=== PATIENT | male | born 2000 | race Caucasian/White ===

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

== ENCOUNTER 2021-07-26 16:27 | Inpatient (IN) | payer MEDICAID, OTHER ==
[2021-07-26 21:09] LABS: Appearance,Urine Clear (Clear); Bilirubin,Urine Negative (Negative); Blood,Urine Negative (Negative); Color,Urine Light Yellow; Glucose,Urine (UA) Negative (Negative); Ketones,Urine Negative (Negative); Leukocyte Esterase,Urine Negative (Negative); Nitrite,Urine Negative (Negative); Protein,Urine Negative (Negative); Specific Gravity,Urine 1.008 (1.001-1.035); Urobilinogen,Urine <2.0 mg/dL (<2.0)
[2021-07-26 21:19] LABS: Amphetamine Screen,Urine Not Detected (NotDetected); Barbiturate Screen,Urine Not Detected (NotDetected); Benzodiazepines Screen,Urine Not Detected (NotDetected); Cocaine Screen,Urine Not Detected (NotDetected); Methadone Screen, Urine Not Detected (NotDetected); Opiate Screen,Urine Not Detected (NotDetected); Oxycodone Screen, Urine Not Detected (NotDetected); Phencyclidine Screen,Urine Not Detected (NotDetected); Tricyclic Antidepressant,Urine Not Detected (NotDetected); Urn Cannabinoid Scrn Detected (NotDetected)
[2021-07-26 21:20] LABS: Basophils % (A) 0 %; Eosinophils % (A) 0 %; HCT 45.7 % (39.0-53.0); Lymphocytes % (A) 19 %; MCH 29.9 pg (25.0-35.0); MCHC 32.9 g/dL (31.0-37.0); MCV 90.7 fL (80.0-100.0); Mean Platelet Volume 7.5; Monocytes # (A) 0.5 k/uL (0-1.0); Monocytes % (A) 5 %; Neutrophils # (A) 7.6 k/uL (1.3-7.7); Neutrophils % (A) 72 %; Platelet Count 302 k/uL (150-450); RBC 5.04 m/uL (4.30-5.90); RDW 12.8 % (11.5-15.5); WBC 10.6 k/uL (4.0-11.0)
[2021-07-26 21:35] LABS: ALT 22 U/L (4-49); AST 43 U/L (17-59); African American GFR (CKD) >90 (>60 ml/min/1.73 sqM); Albumin 5.1 g/dL (3.5-5.0); Alkaline Phosphatase 93 U/L (38-126); Anion Gap 11 mmol/L; Blood Urea Nitrogen 13 mg/dL (9-20); Calcium 9.9 mg/dL (8.4-10.2); Carbon Dioxide 28 mmol/L (22-30); Chloride 102 mmol/L (98-107); Glucose 117 mg/dL (74-99); Non-African American GFR(CKD) >90 (>60 ml/min/1.73 sqM); Potassium 3.8 mmol/L (3.5-5.1); Sodium 141 mmol/L (137-145); Total Bilirubin 0.6 mg/dL (0.2-1.3); Total Protein 8.2 g/dL (6.3-8.2)
--- NOTE | 2021-07-26 23:42 | ED ---
Psych HPI - History of Present Illness MD Complaint: altered mental status -: unknown Associated Psychiatric Symptoms: racing thoughts, auditory hallucinations, delusions Quality: constant, getting worse Improves With: none Worsens With: none Context: significant life stressor Associated Symptoms: denies other symptoms Treatments Prior to Arrival: placed on mental health hold <Tyrell Raygoza - Last Filed: 07/27/21 02:08> - General Source: police Mode of arrival: ambulatory <Fatuma Browne - Last Filed: 07/30/21 12:14> - General Chief Complaint: Psychiatric Symptoms Stated Complaint: Petition Time Seen by Provider: 07/26/21 20:41 - History of Present Illness Initial Comments: 20-year-old male is brought into the emergency department on a court ordered petition. Family is at bedside and helps provide the history. Patient has been hallucinating, paranoid for the past several weeks. Police have been called to the house several times however he refuses to be transferred. Mother did petition the patient and police went to the house today on a court order pickling drum operator to have him evaluated. Mother states that the patient had one episode previously of hallucinations that was caused to low vitamin D level. Patient has been reportedly taking his vitamin D without any missed doses. He has no previous psychiatric diagnosis. Does not follow with a social media marketing specialist. He does not take any prescribed medications. Does admit to smoking marijuana. No other alleviating, precipitating or modifying factors (Fatuma Browne) - Related Data Home Medications Medication Instructions Recorded Confirmed Multivitamins, Thera [Multivitamin 1 tab PO DAILY 08/20/20 07/27/21 (formulary)] Cholecalciferol [Vitamin D3 (25 25 mcg PO DAILY 07/26/21 07/27/21 Mcg = 1000 Iu)] Vitamin B Complex 1 cap PO DAILY 07/26/21 07/27/21 Previous Rx's Medication Instructions Recorded Paliperidone [Invega] 3 mg PO HS 30 Days 07/29/21 Allergies Allergy/AdvReac Type Severity Reaction Status Date / Time amoxicillin Allergy Rash/Hives Verified 07/27/21 03:19 Review of Systems ROS Other: All systems not noted in ROS Statement are negative. <Tyrell Raygoza - Last Filed: 07/27/21 02:08> ROS Other: All systems not noted in ROS Statement are negative. <Fatuma Browne - Last Filed: 07/30/21 12:14> ROS Statement: Those systems with pertinent positive or pertinent negative responses have been documented in the HPI. Past Medical History Past Medical History: Neurologic Disorder Additional Past Medical History / Comment(s): Tetrology of Fallot. Asbergers. History of Any Multi-Drug Resistant Organisms: None Reported Additional Past Surgical History / Comment(s): Heart surgery X1. [place] teeth extracted. Past Anesthesia/Blood Transfusion Reactions: No Reported Reaction, Motion Sickness Past Psychological History: Anxiety Smoking Status: Vaper Past Alcohol Use History: None Reported Past Drug Use History: Marijuana - Past Family History Mother Family Medical History: No Reported History <Fatuma Browne - Last Filed: 07/30/21 12:14> General Exam General appearance: alert, in no apparent distress, anxious Head exam: Present: atraumatic, normocephalic, normal inspection Eye exam: Present: normal appearance, PERRL, EOMI. Absent: scleral icterus, conjunctival injection, periorbital swelling ENT exam: Present: normal exam, mucous membranes moist Neck exam: Present: normal inspection. Absent: tenderness, meningismus, lymphadenopathy Respiratory exam: Present: normal lung sounds bilaterally. Absent: respiratory distress, wheezes, rales, rhonchi, stridor Cardiovascular Exam: Present: normal rhythm, tachycardia, normal heart sounds. Absent: systolic murmur, diastolic murmur, rubs, gallop, clicks GI/Abdominal exam: Present: soft, normal bowel sounds. Absent: distended, tenderness, guarding, rebound, rigid Extremities exam: Present: normal inspection, full ROM, normal capillary refill. Absent: tenderness, pedal edema, joint swelling, calf tenderness Back exam: Present: normal inspection Neurological exam: Present: alert, oriented X3, CN II-XII intact Psychiatric exam: Present: normal affect, normal mood Skin exam: Present: warm, dry, intact, normal color. Absent: rash <Tyrell Raygoza - Last Filed: 07/27/21 02:08> Limitations: no limitations General appearance: alert, in no apparent distress Head exam: Present: atraumatic, normocephalic, normal inspection Eye exam: Present: normal appearance, PERRL, EOMI. Absent: scleral icterus, conjunctival injection, periorbital swelling ENT exam: Present: normal exam, mucous membranes moist Neck exam: Present: normal inspection. Absent: tenderness, meningismus, lymphadenopathy Respiratory exam: Present: normal lung sounds bilaterally. Absent: respiratory distress, wheezes, rales, rhonchi, stridor Cardiovascular Exam: Present: regular rate, normal rhythm, normal heart sounds. Absent: systolic murmur, diastolic murmur, rubs, gallop, clicks GI/Abdominal exam: Present: soft, normal bowel sounds. Absent: distended, tenderness, guarding, rebound, rigid Extremities exam: Present: normal inspection, full ROM, normal capillary refill. Absent: tenderness, pedal edema, joint swelling, calf tenderness Back exam: Present: normal inspection Neurological exam: Present: alert, oriented X3, CN II-XII intact Psychiatric exam: Present: normal affect, normal mood Skin exam: Present: warm, dry, intact, normal color. Absent: rash <Fatuma Browne - Last Filed: 07/30/21 12:14> Course <Tyrell Raygoza - Last Filed: 07/27/21 02:08> Vital Signs 07/26/21 07/27/21 17:04 03:52 Temperature 98.1 F 96.8 F L Pulse Rate 125 H Pulse Rate [ 85 Left Sitting] Respiratory 16 15 Rate Blood Pressure 140/91 Blood Pressure 130/82 [Left Arm Sitting] O2 Sat by Pulse 98 99 Oximetry - Reevaluation(s) Reevaluation #1: 07/27/21 02:08 Medical record is reviewed (Tyrell Raygoza) Reevaluation #2: 07/27/21 02:08 medically clear for psychiatric evaluation (Tyrell Raygoza) Medical Decision Making - Lab Data Result diagrams: 07/26/21 21:13 07/26/21 21:13 <Tyrell Raygoza - Last Filed: 07/27/21 02:08> - Lab Data Result diagrams: 07/26/21 21:13 07/26/21 21:13 <Fatuma Browne - Last Filed: 07/30/21 12:14> - Medical Decision Making 20 male be admitted for psychiatric evaluation and treatment (Tyrell Raygoza) Patient will be signed out to oncoming physician as he is awaiting EPS evaluation (Fatuma Browne) - Lab Data Lab Results 07/26/21 07/26/21 07/26/21 Range/Units 20:51 21:13 21:13 WBC 10.6 (4.0-11.0) k/uL RBC 5.04 (4.30-5.90) m/uL Hgb 15.0 (13.0-17.5) gm/dL Hct 45.7 (39.0-53.0) % MCV 90.7 (80.0-100.0) fL MCH 29.9 (25.0-35.0) pg MCHC 32.9 (31.0-37.0) g/dL RDW 12.8 (11.5-15.5) % Plt Count 302 (150-450) k/uL MPV 7.5 Neutrophils % 72 % Lymphocytes % 19 % Monocytes % 5 % Eosinophils % 0 % Basophils % 0 % Neutrophils # 7.6 (1.3-7.7) k/uL Lymphocytes # 2.0 (1.0-4.8) k/uL Monocytes # 0.5 (0-1.0) k/uL Eosinophils # 0.0 (0-0.7) k/uL Basophils # 0.0 (0-0.2) k/uL Sodium 141 (137-145) mmol/L Potassium 3.8 (3.5-5.1) mmol/L Chloride 102 (98-107) mmol/L Carbon Dioxide 28 (22-30) mmol/L Anion Gap 11 mmol/L BUN 13 (9-20) mg/dL Creatinine 0.88 (0.66-1.25) mg/dL Est GFR (CKD-EPI)AfAm >90 (>60 ml/min/1.73 sqM) Est GFR (CKD-EPI)NonAf >90 (>60 ml/min/1.73 sqM) Glucose 117 H (74-99) mg/dL Estimated Ave Glu mg/dL Hemoglobin A1c (0.0-6.0) % Calcium 9.9 (8.4-10.2) mg/dL Total Bilirubin 0.6 (0.2-1.3) mg/dL AST 43 (17-59) U/L ALT 22 (4-49) U/L Alkaline Phosphatase 93 (38-126) U/L Total Protein 8.2 (6.3-8.2) g/dL Albumin 5.1 H (3.5-5.0) g/dL Triglycerides (0.00-149.00) mg/dL Cholesterol (0.00-200.00) mg/dL LDL Cholesterol, Calc (0.0-131.0) mg/dL VLDL Cholesterol, Calc (5.00-40.00) mg/dL HDL Cholesterol (40.00-60.00) mg/dL Cholesterol/HDL Ratio Ratio TSH (0.465-4.680) mIU/L Urine Color Light Yellow Urine Appearance Clear (Clear) Urine pH 7.0 (5.0-8.0) Ur Specific [place] 1.008 (1.001-1.035) Urine Protein Negative (Negative) Urine Glucose (UA) Negative (Negative) Urine Ketones Negative (Negative) Urine Blood Negative (Negative) Urine Nitrite Negative (Negative) Urine Bilirubin Negative (Negative) Urine Urobilinogen <2.0 (<2.0) mg/dL Ur Leukocyte Esterase Negative (Negative) Urine Opiates Screen Not Detected (NotDetected) Ur Oxycodone Screen Not Detected (NotDetected) Urine Methadone Screen Not Detected (NotDetected) Ur Propoxyphene Screen Not Detected (NotDetected) Ur Barbiturates Screen Not Detected (NotDetected) U Tricyclic Antidepress Not Detected (NotDetected) Ur Phencyclidine Scrn Not Detected (NotDetected) Ur Amphetamines Screen Not Detected (NotDetected) U Methamphetamines Scrn Not Detected (NotDetected) U Benzodiazepines Scrn Not Detected (NotDetected) Urine Cocaine Screen Not Detected (NotDetected) U Marijuana (THC) Screen Detected H (NotDetected) Coronavirus (PCR) (Not Detectd) 07/26/21 07/26/21 07/27/21 Range/Units 21:13 21:13 02:20 WBC (4.0-11.0) k/uL RBC (4.30-5.90) m/uL Hgb (13.0-17.5) gm/dL Hct (39.0-53.0) % MCV (80.0-100.0) fL MCH (25.0-35.0) pg MCHC (31.0-37.0) g/dL RDW (11.5-15.5) % Plt Count (150-450) k/uL MPV Neutrophils % % Lymphocytes % % Monocytes % % Eosinophils % % Basophils % % Neutrophils # (1.3-7.7) k/uL Lymphocytes # (1.0-4.8) k/uL Monocytes # (0-1.0) k/uL Eosinophils # (0-0.7) k/uL Basophils # (0-0.2) k/uL Sodium (137-145) mmol/L Potassium (3.5-5.1) mmol/L Chloride (98-107) mmol/L Carbon Dioxide (22-30) mmol/L Anion Gap mmol/L BUN (9-20) mg/dL Creatinine (0.66-1.25) mg/dL Est GFR (CKD-EPI)AfAm (>60 ml/min/1.73 sqM) Est GFR (CKD-EPI)NonAf (>60 ml/min/1.73 sqM) Glucose (74-99) mg/dL Estimated Ave Glu mg/dL 111 Hemoglobin A1c 5.5 (0.0-6.0) % Calcium (8.4-10.2) mg/dL Total Bilirubin (0.2-1.3) mg/dL AST (17-59) U/L ALT (4-49) U/L Alkaline Phosphatase (38-126) U/L Total Protein (6.3-8.2) g/dL Albumin (3.5-5.0) g/dL Triglycerides 187.00 H (0.00-149.00) mg/dL Cholesterol 141.00 (0.00-200.00) mg/dL LDL Cholesterol, Calc 43.3 (0.0-131.0) mg/dL VLDL Cholesterol, Calc 37.40 (5.00-40.00) mg/dL HDL Cholesterol 60.30 H (40.00-60.00) mg/dL Cholesterol/HDL Ratio 2.34 Ratio TSH 1.280 (0.465-4.680) mIU/L Urine Color Urine Appearance (Clear) Urine pH (5.0-8.0) Ur Specific [place] (1.001-1.035) Urine Protein (Negative) Urine Glucose (UA) (Negative) Urine Ketones (Negative) Urine Blood (Negative) Urine Nitrite (Negative) Urine Bilirubin (Negative) Urine Urobilinogen (<2.0) mg/dL Ur Leukocyte Esterase (Negative) Urine Opiates Screen (NotDetected) Ur Oxycodone Screen (NotDetected) Urine Methadone Screen (NotDetected) Ur Propoxyphene Screen (NotDetected) Ur Barbiturates Screen (NotDetected) U Tricyclic Antidepress (NotDetected) Ur Phencyclidine Scrn (NotDetected) Ur Amphetamines Screen (NotDetected) U Methamphetamines Scrn (NotDetected) U Benzodiazepines Scrn (NotDetected) Urine Cocaine Screen (NotDetected) U Marijuana (THC) Screen (NotDetected) Coronavirus (PCR) Not Detected (Not Detectd) Disposition Is patient prescribed a controlled substance at d/c from ED?: No <Tyrell Raygoza B - Last Filed: 07/27/21 02:08> <Fautma Browne A - Last Filed: 07/30/21 12:14> Clinical Impression: Psychosis, Acute psychosis Disposition: TRANSFER TO PSYCH HOSP/UNIT Condition: Stable
[2021-07-27] MEDS ORDERED: LORazepam 1 MG TAB PO PRN (03:15)
[2021-07-27] MEDS ORDERED: LORazepam 2 MG/ML INJ IM PRN (03:17)
[2021-07-27] MEDS ORDERED: HALOPERIDOL LACTATE 5 MG/ML 1 ML VIAL IM PRN (03:30)
[2021-07-27] MEDS ORDERED: haloperidoL 5 MG TAB PO PRN (06:00)
[2021-07-27] MEDS ORDERED: ACETAMINOPHEN TAB 325 MG TAB PO PRN (08:00)
[2021-07-27] MEDS ORDERED: MAG HYDROX/AL HYDROX/SIMETH 30 ML CUP PO PRN (08:00)
[2021-07-27] MEDS: NICOTINE 14MG/24HR PATCH TRANSDERM SCH (08:24)
[2021-07-27] MEDS ORDERED: MAGNESIUM HYDROXIDE 2,400 MG/10 ML CUP PO PRN (09:00)
--- NOTE | 2021-07-27 11:41 | P.HP ---
Psychiatric H&P - . H&P Date: 07/27/21 History & Physical: Allergies Allergy/AdvReac Type Severity Reaction Status Date / Time amoxicillin Allergy Rash/Hives Verified 07/27/21 03:19 Vital Signs Temp 96.8 F L 07/27/21 03:52 Pulse 85 07/27/21 03:52 Resp 15 07/27/21 03:52 BP 130/82 07/27/21 03:52 Pulse Ox 99 07/27/21 03:52 Intake & Output 07/26/21 07/27/21 07/27/21 18:59 06:59 18:59 Weight 56.699 kg 48.166 kg Laboratory Last Values WBC 10.6 k/uL (4.0-11.0) 07/26/21 21:13 RBC 5.04 m/uL (4.30-5.90) 07/26/21 21:13 Hgb 15.0 gm/dL (13.0-17.5) 07/26/21 21:13 Hct 45.7 % (39.0-53.0) 07/26/21 21:13 MCV 90.7 fL (80.0-100.0) 07/26/21 21:13 MCH 29.9 pg (25.0-35.0) 07/26/21 21:13 MCHC 32.9 g/dL (31.0-37.0) 07/26/21 21:13 RDW 12.8 % (11.5-15.5) 07/26/21 21:13 Plt Count 302 k/uL (150-450) 07/26/21 21:13 MPV 7.5 07/26/21 21:13 Neutrophils % 72 % 07/26/21 21:13 Lymphocytes % 19 % 07/26/21 21:13 Monocytes % 5 % 07/26/21 21:13 Eosinophils % 0 % 07/26/21 21:13 Basophils % 0 % 07/26/21 21:13 Neutrophils # 7.6 k/uL (1.3-7.7) 07/26/21 21:13 Lymphocytes # 2.0 k/uL (1.0-4.8) 07/26/21 21:13 Monocytes # 0.5 k/uL (0-1.0) 07/26/21 21:13 Eosinophils # 0.0 k/uL (0-0.7) 07/26/21 21:13 Basophils # 0.0 k/uL (0-0.2) 07/26/21 21:13 Sodium 141 mmol/L (137-145) 07/26/21 21:13 Potassium 3.8 mmol/L (3.5-5.1) 07/26/21 21:13 Chloride 102 mmol/L (98-107) 07/26/21 21:13 Carbon Dioxide 28 mmol/L (22-30) 07/26/21 21:13 Anion Gap 11 mmol/L 07/26/21 21:13 BUN 13 mg/dL (9-20) 07/26/21 21:13 Creatinine 0.88 mg/dL (0.66-1.25) 07/26/21 21:13 Est GFR (CKD-EPI)AfAm >90 (>60 ml/min/1.73 sqM) 07/26/21 21:13 Est GFR (CKD-EPI)NonAf >90 (>60 ml/min/1.73 sqM) 07/26/21 21:13 Glucose 117 mg/dL (74-99) H 07/26/21 21:13 Calcium 9.9 mg/dL (8.4-10.2) 07/26/21 21:13 Total Bilirubin 0.6 mg/dL (0.2-1.3) 07/26/21 21:13 AST 43 U/L (17-59) 07/26/21 21:13 ALT 22 U/L (4-49) 07/26/21 21:13 Alkaline Phosphatase 93 U/L (38-126) 07/26/21 21:13 Total Protein 8.2 g/dL (6.3-8.2) 07/26/21 21:13 Albumin 5.1 g/dL (3.5-5.0) H 07/26/21 21:13 Urine Color Light Yellow 07/26/21 20:51 Urine Appearance Clear (Clear) 07/26/21 20:51 Urine pH 7.0 (5.0-8.0) 07/26/21 20:51 Ur Specific [place] 1.008 (1.001-1.035) 07/26/21 20:51 Urine Protein Negative (Negative) 07/26/21 20:51 Urine Glucose (UA) Negative (Negative) 07/26/21 20:51 Urine Ketones Negative (Negative) 07/26/21 20:51 Urine Blood Negative (Negative) 07/26/21 20:51 Urine Nitrite Negative (Negative) 07/26/21 20:51 Urine Bilirubin Negative (Negative) 07/26/21 20:51 Urine Urobilinogen <2.0 mg/dL (<2.0) 07/26/21 20:51 Ur Leukocyte Esterase Negative (Negative) 07/26/21 20:51 Urine Opiates Screen Not Detected (NotDetected) 07/26/21 20:51 Ur Oxycodone Screen Not Detected (NotDetected) 07/26/21 20:51 Urine Methadone Screen Not Detected (NotDetected) 07/26/21 20:51 Ur Propoxyphene Screen Not Detected (NotDetected) 07/26/21 20:51 Ur Barbiturates Screen Not Detected (NotDetected) 07/26/21 20:51 U Tricyclic Antidepress Not Detected (NotDetected) 07/26/21 20:51 Ur Phencyclidine Scrn Not Detected (NotDetected) 07/26/21 20:51 Ur Amphetamines Screen Not Detected (NotDetected) 07/26/21 20:51 U Methamphetamines Scrn Not Detected (NotDetected) 07/26/21 20:51 U Benzodiazepines Scrn Not Detected (NotDetected) 07/26/21 20:51 Urine Cocaine Screen Not Detected (NotDetected) 07/26/21 20:51 U Marijuana (THC) Screen Detected (NotDetected) H 07/26/21 20:51 Coronavirus (PCR) Not Detected (Not Detectd) 07/27/21 02:20 07/27/21 11:36 IDENTIFYING DATA: Patient is a 20-year-old male currently [place] 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 HPI: Patient presented to the hospital yesterday brought in by police and petition by patient's mother. According to petition patient has been paranoid lately and been saying bizarre and delusional things including KAMINI and g overnment tapping his phone and also that "Elvia owns the farm". Patient was admitted on a petition and certificate and agreeable to speak to bond underwriter today. According to staff, patient has been endorsing paranoia about different things on the unit today. Patient was somewhat suspicious of bond underwriter's office and asked about the camera systems. Patient was endorsing paranoia and spoke about saying things like "patient owns my farm" and also claims that "I could be the antichrist". He was rambling at times and tangential. He was attempting to cooperate as best as he could. He states that the police brought him in because his mother petitioned him. He also believed the government was tapping his phone and "reading my mind" and also states that the [facility] was listening to him. He states that he does not have any anxiety or any mood swings. He denies a history of raj or manic episodes. He claims that his sleep and appetite have been fair. He is denying any anxiety or any depression. Patient denies any suicidal or homicidal ideations intent or plan. At this time patient denies any auditory or visual hallucinations. Patient denies any flight of ideas racing thoughts and increased in goal directed behavior. Patient admits to using THC on a daily basis. He claims that he smokes about 2 g of marijuana a day. He also claims that he uses nicotine vape products. PAST PSYCHIATRIC HISTORY: Patient states that he has a history of being admitted to the mental health unit at [facility] one year ago however did not explain why. Patient denies being on any psychiatric medications. Patient denies any psychiatric outpatient follow-up. However he did state that he is to follow up with [facility]. Patient denies any history of suicide attempts in the past. Past Medical History: Neurologic Disorder Additional Past Medical History / Comment(s): Tetrology of Fallot. Asbergers. ALLERGIES: as per EMR CHEMICAL DEPENDENCY HISTORY: as per HPI FAMILY PSYCHIATRIC/SUBSTANCE USE HISTORY: Claims that his grandfather had bipolar disorder SOCIAL HISTORY: Patient was born and raised in [place] and also near [place] on a farm. He states that he completed high school. 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 He denies any legal history. He visits with his mother and father.. MENTAL STATUS EXAM: General Appearance: Patient appears to be thin, stated age is alert, directable however is endorsing paranoia and suspiciousness. Patient appears to have fair hygiene and grooming. Behavior: Patient is seated without any agitated behavior. Suspicious and paranoid. Speech: Patient's speech is fluent and nonpressured. Mood/Affect: Patient reports their mood is "okay", affect is congruent and constricted. Suicidality/Homicidality: Patient denies having any homicidal ideation intent or plan. Denies any suicidal ideations intent or plan Perceptions: Patient denies any visual hallucinations and denies any auditory hallucinations Though content/process: Patient is rambling at times, tangential, endorsing paranoia. Memory and concentration: AOX3, grossly intact for the purposes of this session. Can spell "WORLD" backwards Judgment and insight: poor STRENGTHS/WEAKNESSES: strength is that patient is resilient. Weakness is that patient has poor judgment and is impulsive INTELLECT: average IMPRESSIONS: Acute psychosis, rule out secondary to cannabis use Cannabis use disorder, severe Nicotine dependence PLAN: -Patient is admitted under voluntary status to MHU for stabilization of psychiatric symptoms and safety. Patient has signed adult voluntary form and medication consent and is placed in patient's chart. -Medications : Will start patient on paliperidone by mouth 3 mg daily at bedtime for psychosis. -Ativan and Haldol PRN for agitation/aggression -Patient was counselled on substance abuse and desired to cut back on use -Patient was informed of the risks, benefits and side effects of the medication and patient verbally consented to taking the medications. Patient signed med consent form and was placed in chart. -Internal Medicine consult to perform medical evaluation and physical. -NRT - nicotine patch -SW on board for discharge planning. Encourage patient to participate in groups to work on coping skills.
--- NOTE | 2021-07-27 14:59 | P.CONS ---
History of Present Illness - Reason for Consult Consult date: 07/27/21 Medical management Requesting physician: Enoch Hinojosa - Chief Complaint Abdominal statements - History of Present Illness This is a pleasant 20-year-old patient, follows with Dr. Mart. Patient brought into the hospital accompanied by the per nitin addition by the patient's mother. Patient has been becoming paranoid lately and saying delusional and bizarre things. Including development tapping the phone and KAMINI eating more. Also made a comment about Satan awning the farm.. He has been endorsing paranoid statements on the psychiatry unit. Patient occasionally gets heartburn. Does sometimes smoke marijuana. He also does vaping. Alcohol rarely. Sometimes trouble sleeping. Review of systems: GEN.: None EYES: None HEENT: None NECK: None RESPIRATORY: None CARDIOVASCULAR: None GASTROINTESTINAL: None GENITOURINARY: None MUSCULOSKELETAL: None LYMPHATICS: None HEMATOLOGICAL: None PSYCHIATRY: None NEUROLOGICAL: None Past medical history to include: Tetralogy of fallot, Asbergers Social history: Lives with his parents. 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 Does marijuana once or twice a day. Does vaping. Alcohol occasionally. Family history: Reviewed, noncontributory to presentation Physical examination: VITAL SIGNS: 96.8, 95, 15, 1:30/82, 99% room air GENERAL: BMI 16.6, sitting up in chair, awake slightly anxious. EYES: Pupils equal. Conjunctiva normal. HEENT: External appearance of nose and ears normal, oral cavity grossly normal. NECK: JVD not raised; masses not palpable. HEART: First and second heart sounds are normal; no edema. LUNGS: Respiratory rate normal; clear to auscultation. ABDOMEN: Soft, nontender, liver spleen not palpable, no masses palpable. PSYCH: Answering questions. More detailed examination per psychiatryl. MUSCULOSKELETAL:No Clubbing/cyanosis;muscles-grossly intact NEUROLOGICAL: Cranial nerves grossly intact; no facial asymmetry, power and sensation grossly intact. LYMPHATICS: No lymph nodes palpable in the axilla and neck INVESTIGATIONS, reviewed in the clinical context: White count 10.6 hemoglobin 15 platelets 302 sodium 141 potassium 3.8 creatinine 0.8 date UA: Negative Urine drug screen positive for COVID 19 PCR: Not detected Assessment and plan: -Chronic nicotine dependence, patient does vaping daily Nicotine patch -Marijuana use on a daily basis Counseled against the same -Occasional GERD Liquid Tums when necessary -Acute Psychosis not otherwise specified Medications per psychiatry Discussed with the patient. Nicotine patch. Tums when necessary. Follow-up with Dr. Mart upon discharge. Thank you Dr. Hinojosa Past Medical History Past Medical History: Neurologic Disorder Additional Past Medical History / Comment(s): Tetrology of Fallot. Asbergers. History of Any Multi-Drug Resistant Organisms: None Reported Additional Past Surgical History / Comment(s): Heart surgery X1. [place] teeth extracted. Past Anesthesia/Blood Transfusion Reactions: No Reported Reaction, Motion Sickness Past Psychological History: Anxiety Smoking Status: Vaper Past Alcohol Use History: None Reported Past Drug Use History: Marijuana Additional Drug Use History / Comment(s): Medical marijuana once or twice daily. - Past Family History Mother Family Medical History: No Reported History Medications and Allergies Home Medications Medication Instructions Recorded Confirmed Type Multivitamins, Thera [Multivitamin 1 tab PO DAILY 08/20/20 07/27/21 History (formulary)] Cholecalciferol [Vitamin D3 (25 25 mcg PO DAILY 07/26/21 07/27/21 History Mcg = 1000 Iu)] Vitamin B Complex 1 cap PO DAILY 07/26/21 07/27/21 History Allergies Allergy/AdvReac Type Severity Reaction Status Date / Time amoxicillin Allergy Rash/Hives Verified 07/27/21 03:19 Physical Exam Vitals: Vital Signs Temp Pulse Pulse Resp BP BP Pulse Ox 07/27/21 03:52 96.8 F L 85 15 130/82 99 07/26/21 17:04 98.1 F 125 H 16 140/91 98 Intake and Output 07/26/21 07/27/21 07/27/21 22:59 06:59 14:59 Other: Weight 56.699 kg 48.166 kg Results CBC & Chem 7: 07/26/21 21:13 07/26/21 21:13 Labs: Abnormal Lab Results - Last 24 Hours (Table) 07/26/21 07/26/21 Range/Units 20:51 21:13 Glucose 117 H (74-99) mg/dL Albumin 5.1 H (3.5-5.0) g/dL U Marijuana (THC) Screen Detected H (NotDetected)
[2021-07-27 15:34] VITALS: BMI 16.6
[2021-07-27] MEDS: PALIPERIDONE 3 MG TAB.ER.24 PO SCH (21:21)
[2021-07-28 06:28] VITALS: RESP 16
[2021-07-28] MEDS: NICOTINE 14MG/24HR PATCH TRANSDERM SCH (08:44)
--- NOTE | 2021-07-28 10:22 | P.PN ---
Progress Note - Text Progress Note Date: 07/28/21 Interval history: Patient was seen today for psychiatric follow up. He was seen participating in group today and appeared to have an improvement in his overall affect today. He states that his mood and anxiety and thoughts are becoming clearer and improved since coming in. He claims that he was thinking "like a fool" before he came into the hospital. He states that the medication made him feel tired last night however states that he did wake up fairly early due to another patient being loud. He states that his appetite is improving. He claims that he is feeling less paranoid today and was not suspicious of copy writer. He appeared to be fairly future oriented and spoke about discharge planning. He is denying any suicidal or homicidal ideations intent or plan and denying any auditory or visual hallucinations. General Appearance: Patient appears to be thin, stated age is alert, directable however, less suspicious today. Patient appears to have fair hygiene and grooming. Behavior: Patient is seated without any agitated behavior. less Suspicious Speech: Patient's speech is fluent and nonpressured. Mood/Affect: Patient reports their mood is "good", affect is congruent Suicidality/Homicidality: Patient denies having any homicidal ideation intent or plan. Denies any suicidal ideations intent or plan Perceptions: Patient denies any visual hallucinations and denies any auditory hallucinations Though content/process: Patient is rambling at times, tangential/circumstantial. More goal oriented and improving thought process. Less suspicious/paranoid. Memory and concentration: AOX3, grossly intact for the purposes of this session Judgment and insight: improving mildly IMPRESSIONS: Acute psychosis, rule out secondary to cannabis use Cannabis use disorder, severe Nicotine dependence PLAN: -Patient is admitted under voluntary status to MHU for stabilization of psychiatric symptoms and safety. Patient has signed adult voluntary form and medication consent and is placed in patient's chart. -Medications : continue with paliperidone by mouth 3 mg daily at bedtime for p sychosis. -Ativan and Haldol PRN for agitation/aggression -NRT - nicotine patch -SW on board for discharge planning. Encourage patient to participate in groups to work on coping skills. likely discharge tomorrow back home.
[2021-07-28 10:43] LABS: Chol/HDL Ratio 2.34 Ratio; LDL Cholesterol,Calculated 43.3 mg/dL (0.0-131.0)
[2021-07-28] MEDS: PALIPERIDONE 3 MG TAB.ER.24 PO SCH (20:23)
[2021-07-29 06:53] VITALS: BP 118/70; PULSE 106; TEMP 97.9
--- NOTE | 2021-07-29 10:12 | P.DS ---
Providers Date of admission: 07/27/21 03:00 Expected date of discharge: 07/29/21 Attending physician: Enoch Hinojosa MD Consults: 07/27/21 03:15 Consult Physician Routine Consulting Provider: Jaiden Alejandra Consult Reason/Comments: For H & P for Medical Follow Up Do you want consulting provider notified?: Yes Primary care physician: Dejon Mart - Discharge Diagnosis(es) (1) Acute psychosis Current Visit: Yes Status: Acute Priority: High (2) Cannabis use disorder, severe, dependence Current Visit: Yes Status: Acute Priority: High (3) Nicotine dependence Current Visit: Yes Status: Acute Priority: Low Hospital Course: Admission HPI: Admission note was completed by technical document writer "Patient is a 20-year-old male currently lives [place] 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 Patient presented to the hospital yesterday brought in by police and petition by patient's mother. According to petition patient has been paranoid lately and been saying bizarre and delusional things including [employer] and government tapping his phone and also that "Elvia owns the farm". Patient was admitted on a petition and certificate and agreeable to speak to technical document writer today. According to staff, patient has been endorsing paranoia about different things on the unit today. Patient was somewhat suspicious of technical document writer's office and asked about the camera systems. Patient was endorsing paranoia and spoke about saying things like "patient owns my farm" and also claims that "I could be the antichrist". He was rambling at times and tangential. He was attempting to cooperate as best as he could. He states that the police brought him in because his mother petitioned him. He also believed the Screenie was tapping his phone and "reading my mind" and also states that the FullStory was listening to him. He states that he does not have any anxiety or any mood swings. He denies a history of raj or manic episodes. He claims that his sleep and appetite have been fair. He is denying any anxiety or any depression. Patient denies any suicidal or homicidal ideations intent or plan. At this time patient denies any auditory or visual hallucinations. Patient denies any flight of ideas racing thoughts and increased in goal directed behavior. Patient admits to using THC on a daily basis. He claims that he smokes about 2 g of marijuana a day. He also claims that he uses nicotine vape products." Hospital course: Upon admission to the unit patient was initially admitted involuntarily on a petition and certificate however he was directable and agreeable to commence treatment and signed adult voluntary form . Patient got along well with other patients on the unit and followed unit protocol. Patient was compliant with the medications and denied any side effects throughout hospital course. Patient was started on paliperidone by mouth 3 mg daily at bedtime for psychosis/paranoia. Patient spoke of his stressors and engaged in therapy both group and individual. Patient was also seen by medical team for history and physical exam. Throughout the course of the hospitalization patient gradually improved with regards to psychosis/paranoia, mood, sleep and became more future oriented with improved insight and judgment. On the day of discharge patient denied any suicidal or homicidal ideations intent or plan denied any auditory or visual hallucinations. Patient endorsed wanting to live for his future and his family. The patient denied any access to guns or weapons. Patient denied any paranoia and did not endorse any delusions. Patient does have a significant history of substance abuse and was counseled on abstaining from all substances including alcohol and marijuana. Patient elected to do outpatient substance use treatment program through [facility]. Patient was also counseled on the medications and need for regular compliance and was encouraged to follow-up with their outpatient appointment for mental health and also for primary care. Prior to discharge a family meeting will be arranged by psychosocial rehabilitation counselor to answer any questions and ensure safety upon discharge. Mental status exam: General Appearance: Patient appears to be thin, stated age is alert, pleasant, and cooperative. Patient is in no acute distress and has improved hygiene and grooming Behavior: Patient is calmly seated without any agitated behavior. Speech: Patient's speech is fluent and nonpressured. Mood/Affect: Patient reports their mood is "better", affect is congruent and euthymic. Suicidality/Homicidality: Patient denies having any suicidal or homicidal ideation intent or plan. Perceptions: Patient denies any auditory or visual hallucinations. Though content/process: There is no evidence of any delusional thought content and thought process is linear and goal-directed. more future oriented Memory and concentration: AOX3, grossly intact for the purposes of this session. Can spell "WORLD" backwards correctly. Judgment and insight: improved with guarded prognosis Impression: Acute psychosis, likely secondary to cannabis use Cannabis use disorder, severe Nicotine dependence Plan: -Continue with discharge today as patient has improved and stabilized psychiatrically and is not currently an imminent threat to himself and/or others. Patient will remain at chronically elevated risk for harm to self and/or others due to his substance abuse. -Continue medications: Paliperidone by mouth 3 mg daily at bedtime for psychosis/paranoia. -Patient was counseled on the need for medication compliance and appropriate follow-up at mental health and also primary care for medical issues. Patient verbalized understanding and agreed. -Social work to arrange for and conduct family meeting to ensure safety upon discharge and answer any questions/concerns. Social work also to arrange for patients follow up appointments for psychiatric care along with follow up with primary care provider. -Patient counseled on abstaining from recreational drugs and marijuana and alcohol. Was informed/educated on the adverse effects on their physical and mental health. Patient verbally agreed and understood. Patient was offered substance abuse treatment however declined at this time. -Patient was instructed to return to the hospital or seek immediate medical care if their psychiatric or medical symptoms do worsen or reoccur. Allergies Allergy/AdvReac Type Severity Reaction Status Date / Time amoxicillin Allergy Rash/Hives Verified 07/27/21 03:19 Laboratory Results WBC 10.6 k/uL (4.0-11.0) 07/26/21 21:13 RBC 5.04 m/uL (4.30-5.90) 07/26/21 21:13 Hgb 15.0 gm/dL (13.0-17.5) 07/26/21 21:13 Hct 45.7 % (39.0-53.0) 07/26/21 21:13 MCV 90.7 fL (80.0-100.0) 07/26/21 21:13 MCH 29.9 pg (25.0-35.0) 07/26/21 21:13 MCHC 32.9 g/dL (31.0-37.0) 07/26/21 21:13 RDW 12.8 % (11.5-15.5) 07/26/21 21:13 Plt Count 302 k/uL (150-450) 07/26/21 21:13 MPV 7.5 07/26/21 21:13 Neutrophils % 72 % 07/26/21 21:13 Lymphocytes % 19 % 07/26/21 21:13 Monocytes % 5 % 07/26/21 21:13 Eosinophils % 0 % 07/26/21 21:13 Basophils % 0 % 07/26/21 21:13 Neutrophils # 7.6 k/uL (1.3-7.7) 07/26/21 21:13 Lymphocytes # 2.0 k/uL (1.0-4.8) 07/26/21 21:13 Monocytes # 0.5 k/uL (0-1.0) 07/26/21 21:13 Eosinophils # 0.0 k/uL (0-0.7) 07/26/21 21:13 Basophils # 0.0 k/uL (0-0.2) 07/26/21 21:13 Sodium 141 mmol/L (137-145) 07/26/21 21:13 Potassium 3.8 mmol/L (3.5-5.1) 07/26/21 21:13 Chloride 102 mmol/L (98-107) 07/26/21 21:13 Carbon Dioxide 28 mmol/L (22-30) 07/26/21 21:13 Anion Gap 11 mmol/L 07/26/21 21:13 BUN 13 mg/dL (9-20) 07/26/21 21:13 Creatinine 0.88 mg/dL (0.66-1.25) 07/26/21 21:13 Est GFR (CKD-EPI)AfAm >90 (>60 ml/min/1.73 sqM) 07/26/21 21:13 Est GFR (CKD-EPI)NonAf >90 (>60 ml/min/1.73 sqM) 07/26/21 21:13 Glucose 117 mg/dL (74-99) H 07/26/21 21:[address] Glu mg/dL 111 07/26/21 21:13 Hemoglobin A1c 5.5 % (0.0-6.0) 07/26/21 21:13 Calcium 9.9 mg/dL (8.4-10.2) 07/26/21 21:13 Total Bilirubin 0.6 mg/dL (0.2-1.3) 07/26/21 21:13 AST 43 U/L (17-59) 07/26/21 21:13 ALT 22 U/L (4-49) 07/26/21 21:13 Alkaline Phosphatase 93 U/L (38-126) 07/26/21 21:13 Total Protein 8.2 g/dL (6.3-8.2) 07/26/21 21:13 Albumin 5.1 g/dL (3.5-5.0) H 07/26/21 21:13 Triglycerides 187.00 mg/dL (0.00-149.00) H 07/26/21 21: Cholesterol 141.00 mg/dL (0.00-200.00) 07/26/21 21: LDL Cholesterol, Calc 43.3 mg/dL (0.0-131.0) 07/26/21: VLDL Cholesterol, Calc 37.40 mg/dL (5.00-40.00) 07/26/21: HDL Cholesterol 60.30 mg/dL (40.00-60.00) H 07/26/21: Cholesterol/HDL Ratio 2.34 Ratio 07/26/21: TSH 1.280 mIU/L (0.465-4.680) 07/26/21 21: Urine Color Light Yellow 07/26/21 20: Urine Appearance Clear (Clear) 07/26/21 20: Urine pH 7.0 (5.0-8.0) 07/26/21 20: Ur Specific [place] 1.008 (1.001-1.035) 07/26/21 20: Urine Protein Negative (Negative) 07/26/21 20: Urine Glucose (UA) Negative (Negative) 07/26/21 20: Urine Ketones Negative (Negative) 07/26/21 20: Urine Blood Negative (Negative) 07/26/21 20: Urine Nitrite Negative (Negative) 07/26/21: Urine Bilirubin Negative (Negative) 07/26/21 20: Urine Urobilinogen <2.0 mg/dL (<2.0) 07/26/21 20: Ur Leukocyte Esterase Negative (Negative) 07/26/21 20:51 Urine Opiates Screen Not Detected (NotDetected) 07/26/21 20: Ur Oxycodone Screen Not Detected (NotDetected) 07/26/21 20:51 Urine Methadone Screen Not Detected (NotDetected) 07/26/21 20:51 Ur Propoxyphene Screen Not Detected (NotDetected) 07/26/21 20:51 Ur Barbiturates Screen Not Detected (NotDetected) 07/26/21 20:51 U Tricyclic Antidepress Not Detected (NotDetected) 07/26/21 20:51 Ur Phencyclidine Scrn Not Detected (NotDetected) 07/26/21 20:51 Ur Amphetamines Screen Not Detected (NotDetected) 07/26/21 20:51 U Methamphetamines Scrn Not Detected (NotDetected) 07/26/21 20:51 U Benzodiazepines Scrn Not Detected (NotDetected) 07/26/21 20:51 Urine Cocaine Screen Not Detected (NotDetected) 07/26/21 20:51 U Marijuana (THC) Screen Detected (NotDetected) H 07/26/21 20:51 Coronavirus (PCR) Not Detected (Not Detectd) 07/27/21 02:20 Vital Signs Temp 97.9 F 07/29/21 06:52 Pulse 106 H 07/29/21 06:52 Resp 16 07/29/21 06:52 BP 118/70 07/29/21 06:52 Pulse Ox 99 07/29/21 06:52 Patient Condition at Discharge: Stable Plan - Discharge Summary New Discharge Prescriptions: New Paliperidone [Invega] 3 mg PO HS 30 Days Continue Multivitamins, Thera [Multivitamin (formulary)] 1 tab PO DAILY Cholecalciferol [Vitamin D3 (25 Mcg = 1000 Iu)] 25 mcg PO DAILY Vitamin B Complex 1 cap PO DAILY Discharge Medication List Multivitamins, Thera [Multivitamin (formulary)] 1 tab PO DAILY 08/20/20 [History] Cholecalciferol [Vitamin D3 (25 Mcg = 1000 Iu)] 25 mcg PO DAILY 07/26/21 [History] Vitamin B Complex 1 cap PO DAILY 07/26/21 [History] Paliperidone [Invega] 3 mg PO HS 30 Days 07/29/21 [Rx] Follow up Appointment(s)/Referral(s): Dejon Mart MD [Primary Care Provider] - 1-2 days Activity/Diet/Wound Care/Special Instructions: Activity and diet as tolerated. Avoid the use of street drugs and alcohol. Take all medications as prescribed. When you are in need of refills on your medications please contact your medical provider and/or outpatient psychiatrist to have this done. Please go to scheduled outpatient appointment for aftercare treatment. If symptoms return or become worse, call the crisis line at and/or go to the nearest emergency room for evaluation Discharge Disposition: HOME SELF-CARE
== END 2021-07-29 13:15 | disposition home or self-care (01) | DRG 896 ==
LOC: EC 16:27 → SUPCPDRO 16:27 → 3MHU 07-27 03:00
PROVIDERS: ADMIT Psychiatry & Neurology Psychiatry; ATTEND Psychiatry & Neurology Psychiatry
DX: F12.259 Cannabis dependence with psychotic disorder, unspecified (principal); Q21.3 Tetralogy of Fallot; F84.5 Asperger's syndrome; Z20.822 Contact with and (suspected) exposure to COVID-19; K21.9 Gastro-esophageal reflux disease without esophagitis; E55.9 Vitamin D deficiency, unspecified; F41.9 Anxiety disorder, unspecified; F17.210 Nicotine dependence, cigarettes, uncomplicated; Z71.6 Tobacco abuse counseling; Z71.51 Drug abuse counseling and surveillance of drug abuser; Z79.899 Other long term (current) drug therapy; Z98.818 Other dental procedure status; Z88.0 Allergy status to penicillin; Z81.8 Family history of other mental and behavioral disorders
CPT/HCPCS: 36415; 80053; 80061; 80306; 81003; 82075; 83036; 84443; 85025; 87635; 99285

== ENCOUNTER 2021-12-30 16:56 | Inpatient (IN) | payer OTHER ==
--- NOTE | 2021-12-30 18:20 | ED ---
General Adult HPI - General Chief complaint: Psychiatric Symptoms Stated complaint: mental health Time Seen by Provider: 12/30/21 17:35 Source: patient, family, police Mode of arrival: EMS Limitations: no limitations - History of Present Illness Initial comments: Dictation was produced using [employer] dictation software. please excuse any grammatical, word or spelling errors. Chief Complaint: 21-year-old male brought in by [employer] police for a couple border History of Present Illness: he is 21-year-old male. He denies any complaints at this time. He states that he is here because there was a pickup order for him. He is not aware of what this pickup order might say. He's been in the hospital for the same thing in the past. According to petition brought by police there is documentation that reports that family noticed that patient's been showing manic and psychotic behavior. He's been stating that E is after him. Patient denies all of this. Denies any suicidal or homicidal ideation. Denies any feeling that people are out to get him. No visual auditory hallucinations. Patient has no complaints at this time. The ROS documented in this emergency department record has been reviewed and confirmed by me. Those systems with pertinent positive or negative responses have been documented in the HPI. All other systems are other negative and/or noncontributory. PHYSICAL EXAM: General Impression: Alert and oriented x3, not in acute distress HEENT: Normocephalic atraumatic, extra-ocular movements intact, pupils equal and reactive to light bilaterally, mucous membranes moist. Cardiovascular: Heart regular rate and rhythm Chest: Able to complete full sentences, no retractions, no tachypnea Abdomen: abdomen soft, non-tender, non-distended, no organomegaly Musculoskeletal: Pulses present and equal in all extremities, no peripheral edema Motor: no focal deficits noted Neurological: CN II-XII grossly intact, no focal motor or sensory deficits noted Skin: Intact with no visualized rashes Psych: Normal affect and mood ED course: 21-year-old male presents to the ER if brought in by law enforcement for court ordered petition. Heart rate per triage was 120. Rest of vital signs within acceptable limits. Patient's physical examination is benign. He is not tachycardic on physical examination and has a normal pulse on my exam. Patient medically cleared for EPS evaluation. Patient evaluate by EPS requested patient be admitted. Patient had screening COVID-19 test which was positive. Patient is not amenable for inpatient psychiatric unit because of this. Given patient's degree of psychosis and court order patient be admitted to medicine with psychiatry on consult. - Related Data Home Medications Medication Instructions Recorded Confirmed Multivitamins, Thera [Multivitamin 1 tab PO DAILY 08/20/20 07/27/21 (formulary)] Cholecalciferol [Vitamin D3 (25 25 mcg PO DAILY 07/26/21 07/27/21 Mcg = 1000 Iu)] Vitamin B Complex 1 cap PO DAILY 07/26/21 07/27/21 Previous Rx's Medication Instructions Recorded Paliperidone [Invega] 3 mg PO HS 30 Days 07/29/21 Allergies Allergy/AdvReac Type Severity Reaction Status Date / Time amoxicillin Allergy Rash/Hives Verified 12/30/21 17:53 Review of Systems ROS Statement: Those systems with pertinent positive or pertinent negative responses have been documented in the HPI. ROS Other: All systems not noted in ROS Statement are negative. Past Medical History Past Medical History: Neurologic Disorder Additional Past Medical History / Comment(s): Tetrology of Fallot. Asbergers. History of Any Multi-Drug Resistant Organisms: None Reported Additional Past Surgical History / Comment(s): Heart surgery X1. [place] teeth extracted. Past Anesthesia/Blood Transfusion Reactions: No Reported Reaction, Motion Sickness Past Psychological History: Anxiety Smoking Status: Vaper Past Alcohol Use History: None Reported Past Drug Use History: Marijuana - Past Family History Mother Family Medical History: No Reported History General Exam Limitations: no limitations Course Vital Signs 12/30/21 17:46 Temperature 97.9 F Pulse Rate 120 H Respiratory 18 Rate Blood Pressure 146/84 O2 Sat by Pulse 99 Oximetry Medical Decision Making - Lab Data Lab Results 12/30/21 Range/Units 21:33 Coronavirus (PCR) Detected A (Not Detectd) Disposition Clinical Impression: Psychosis Disposition: ADMITTED IP TO THIS HOSP Condition: Fair Referrals: None,Stated [Primary Care Provider] - 1-2 days Decision Time: 22:12
[2021-12-30] MEDS ORDERED: NALOXONE 0.4 MG/ML 1 ML VIAL IV PRN (22:10)
[2021-12-31] MEDS: ACETAMINOPHEN TAB 325 MG TAB PO PRN (09:07)
[2021-12-31 11:46] LABS: ALT 21 U/L (4-49); AST 34 U/L (17-59); African American GFR (CKD) >90 (>60 ml/min/1.73 sqM); Albumin 5.6 g/dL (3.5-5.0); Albumin/Globulin Ratio 1.9; Alkaline Phosphatase 89 U/L (38-126); Anion Gap 16 mmol/L; Blood Urea Nitrogen 12 mg/dL (9-20); C Reactive Protein <0.5 mg/dL (<1.0); Calcium 10.5 mg/dL (8.4-10.2); Carbon Dioxide 24 mmol/L (22-30); Chloride 101 mmol/L (98-107); Glucose 108 mg/dL (74-99); LDH 543 U/L (313-618); Non-African American GFR(CKD) >90 (>60 ml/min/1.73 sqM); Potassium 4.3 mmol/L (3.5-5.1); Sodium 141 mmol/L (137-145); Total Protein 8.6 g/dL (6.3-8.2)
[2021-12-31] MEDS: ASCORBIC ACID 500 MG TAB PO SCH (14:08)
[2021-12-31] MEDS: ZINC SULFATE 220 MG CAP PO SCH (14:08)
[2021-12-31] MEDS: CHOLECALCIFEROL 25 MCG (1000 IU) TABLET PO SCH (14:08)
[2021-12-31] MEDS ORDERED: haloperidoL 5 MG TAB PO PRN (17:33)
--- NOTE | 2021-12-31 17:34 | P.CN ---
Psychiatric Consult - . Consult date: 12/31/21 Consult:: 12/31/21 17:16 IDENTIFYING DATA: This patient is a 21-year-old male who is currently employed REASON FOR REFERRAL: Psychiatry was consulted for psychosis HISTORY OF PRESENT ILLNESS: The patient presented to the ED on a pickup order but given that COVID-19 was positive, patient could not be placed in the psychiatric unit. Of note, patient's family is concerned because of statements about the governme nt monitoring him. Patient is pleasant upon approach. He smiles inappropriately and states that he has been "going with the flow ". Although he denies auditory hallucinations, as the interview progresses, patient endorses that the national security is involved and he does not want to discuss it further. He also states that he has prevented various catastrophes. He then becomes guarded and does not wish to discuss it further. Patient states that he has been sleeping 4-6 hours for a "long time." He is inconsistent as to whether or not he has been compliant with his medications. At this time patient denies any suicidal or homical ideations, intent or plan. Patient denies any auditory, visual hallucinations. Patient expresses paranoia and persecutory delusions. PAST PSYCHIATRIC HISTORY: Patient has a a history of psychosis. He reports being on Invega and that it caused him to feel tired. He was hospitalized at [facility] in July 2021 for psychosis. He denies having an outpatient psychiatrist. Patient denies any history of suicide attempts PAST MEDICAL HISTORY: TOF and autistic spectrum disorder ALLERGIES: as per EMR. CHEMICAL DEPENDENCY HISTORY: Patient endorses vaping cannabis and tobacco. He denies other substance use FAMILY PSYCHIATRIC/SUBSTANCE USE HISTORY: Grandfatherbipolar disorder SOCIAL HISTORY: Patient was born and raised in [place]. He states that he completed high school but is not in college due to failed grades. 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 He also reports he has 4 dogs whom he loves a lot MENTAL STATUS EXAM: General Appearance: Patient appears to be stated age is alert, pleasant, and cooperative. Patient appears to have fair hygiene and grooming wearing hospital gown with good eye contact. Behavior: Patient is calmly lying in bed without any agitated behavior. Speech: Patient's speech is fluent and nonpressured. Mood/Affect: Patient reports their mood is euthymic and affect is congruent Suicidality/Homicidality: Patient denies having any suicidal or homicidal ideation intent or plan. Perceptions: Patient denies any visual hallucinations and denies any auditory hallucinations Though content/process: Her secretory delusions and grandiosity Memory and concentration: AOX3, grossly intact for the purposes of this session. 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 -Continue 1:1 sitter for safety -Start Abilify 10 mg daily for psychosis -Haldol PRN for agitation -Cannot leave AMA at this time. Patient will need a petition and certification if attempting to leave AMA. -Equipment Operator/Laborer spoke with patient about substance abuse and the harmful effects on medical and mental health -When medically stable, patient is eligible for transfer to a psych bed when available. -Communicated plan to patient's nurse -Will continue to follow along
--- NOTE | 2021-12-31 22:44 | P.HPIM ---
History of Present Illness H&P Date: 12/31/21 Chief Complaint: Brought by EMS under petition Patient is a 21-year-old male with a known history of Asperger's, tetralogy of Fallot, anxiety, marijuana use was brought to the hospital as he was petition by his parents. According to the petition family noticed blood patient has been showing manic and psychotic behavior. Patient also having paranoid ideation. Denies any suicidal ideation or homicidal ideation. Otherwise patient currently denies any complaints of chest pain or shortness of breath. No nausea vomiting abdominal pain or diarrhea. No dysuria or hematuria. Denies any recent illnesses. Laboratory data showed sodium 141 potassium 4.3 chloride 101 bicarb is 24 BUN 12 and creatinine 0.81 Patient was tested positive for COVID-19 infection while in the ER and was transferred to medicine service for further management. Psychiatry has seen the patient and recommended inpatient admission. Review of Systems Constitutional: Patient denies any fever or chills . no Generalized weakness. Abdomen: Patient denied any nausea or vomiting or abd. pain Cardiovascular: Patient denies any chest pain or short of breath no palpitation s. Respiratory: patient denied any cough . no sputum production. No shortness of breath Neurologic: Patient denied any numbness or tingling headache. Musculoskeletal: Patient denies any complaints of joint swelling or deformity. Skin: Negative Psychiatric: Negative Endocrine: No heat or cold intolerance. No recent weight gain. Genitourinary: No dysuria or hematuria. All other 14 point ROS negative except the above Past Medical History Past Medical History: Neurologic Disorder Additional Past Medical History / Comment(s): Tetrology of Fallot. Asbergers. History of Any Multi-Drug Resistant Organisms: None Reported Additional Past Surgical History / Comment(s): Heart surgery X1. [place] teeth extracted. Past Anesthesia/Blood Transfusion Reactions: No Reported Reaction, Motion Sickness Past Psychological History: Anxiety Smoking Status: Vaper Past Alcohol Use History: None Reported Past Drug Use History: Marijuana - Past Family History Mother Family Medical History: No Reported History Medications and Allergies Home Medications Medication Instructions Recorded Confirmed Type Multivitamins, Thera [Multivitamin 1 tab PO DAILY 08/20/20 07/27/21 History (formulary)] Cholecalciferol [Vitamin D3 (25 25 mcg PO DAILY 07/26/21 07/27/21 History Mcg = 1000 Iu)] Vitamin B Complex 1 cap PO DAILY 07/26/21 07/27/21 History Paliperidone [Invega] 3 mg PO HS 30 Days 07/29/21 Rx Allergies Allergy/AdvReac Type Severity Reaction Status Date / Time amoxicillin Allergy Rash/Hives Verified 12/30/21 17:53 Physical Exam Vitals: Vital Signs Temp Pulse Resp BP Pulse Ox 12/31/21 09:00 107 H 18 123/79 97 12/30/21 17:46 97.9 F 120 H 18 146/84 99 Intake and Output 12/30/21 12/31/21 12/31/21 22:59 06:59 14:59 Other: Weight 56.699 kg PHYSICAL EXAMINATION: Patient is lying in the bed comfortably, no acute distress, awake alert and oriented.. HEENT: Normocephalic. Neck is supple. Pupils reactive. Nostrils clear. Oral cavity is moist. Neck reveals no JVD, carotid bruits, or thyromegaly. CHEST EXAMINATION: Trachea is central. Symmetrical expansion. Lung loomis clear to auscultation and percussion. CARDIAC: Normal S1, S2 with no gallops. No murmurs ABDOMEN: Soft. Bowel sounds present. Nontender. No organomegaly. No abdominal bruits. Extremities: reveal no edema. No clubbing or cyanosis Neurologically awake, alert, oriented x3 with well-coordinated movements. No focal deficits noted Skin: No rash or skin lesions. Psychiatric: Coperative. Nonsuicidal, Musculoskeletal: No joint swelling or deformity. Normal range of motion. Results CBC & Chem 7: 12/31/21 11:04 Labs: Abnormal Lab Results - Last 24 Hours (Table) 12/30/21 Range/Units 21:33 Coronavirus (PCR) Detected A (Not Detectd) Thrombosis Risk Factor Assmnt - DVT/VTE Prophylaxis DVT/VTE Prophylaxis: Pharmacologic Prophylaxis ordered, Mechanical Prophylaxis ordered Assessment and Plan Assessment: Acute COVID-19 infection. Patient is currently hypoxic. Not symptomatic Acute psychosis Possible schizophrenia History of tetralogy of Fallot s/p surgery 2-year-age Asperger's Marijuana and vaping DVT prophylaxis with Lovenox subcu Plan: Patient will be continued on supportive care for COVID-19 infection. Patient is currently not hypoxic. Continue with multivitamins and Lovenox subcu for DVT prophylaxis. Patient was seen by psychiatry and recommended inpatient psychiatric admission. Follow-up inflammatory markers. Patient will be transferred to psychiatric unit after 5-day isolation. Time with Patient: Greater than 30
[2022-01-01] MEDS: ACETAMINOPHEN TAB 325 MG TAB PO PRN (02:06)
[2022-01-01] MEDS ORDERED: LORazepam 1 MG/0.5 ML VIAL IV PRN (04:33)
[2022-01-01] MEDS: ENOXAPARIN 40 MG/0.4 ML SYRINGE SQ SCH ×2 (07:12→07:13)
[2022-01-01] MEDS: ZINC SULFATE 220 MG CAP PO SCH (07:13)
[2022-01-01] MEDS: ASCORBIC ACID 500 MG TAB PO SCH (07:13)
[2022-01-01] MEDS: CHOLECALCIFEROL 25 MCG (1000 IU) TABLET PO SCH (07:13)
[2022-01-01] MEDS ORDERED: LORazepam 1 MG/0.5 ML VIAL IV STA (08:27)
[2022-01-01] MEDS ORDERED: ARIPiprazole 10 MG TAB PO SCH (09:00)
[2022-01-01] MEDS ORDERED: OLANZapine ODT 5 MG TAB PO PRN (17:17)
--- NOTE | 2022-01-01 17:18 | P.PN ---
Progress Note - Text Progress Note Date: 01/01/22 Interval History: Patient was seen bedside. He was sedated this evening. After being given Ativan IV 1 mg twice for anxiousness, and receiving Abilify 10 mg, patient was vomiting this morning per nurse. He stated that he did have food afterwards and has been tolerating it better. Patient continues to be delusional and paranoid, stating that he cannot discuss the security events that he has prevented. He continues to mention the [employer] and Trump. He is agreeable with trying a new medication at night. He reports adequate sleep and appetite. He states that he has been more sedated and less energetic. He states that he really does not like Haldol and would not like to take that for agitation or aggression. He denies SI, HI, and AVH. Mental Status Exam: General Appearance: Patient appears to be stated age is alert, pleasant, and cooperative. Patient appears to have fair hygiene and grooming wearing hospital gown with good eye contact. Behavior: Patient is calmly lying in bed without any agitated behavior. Speech: Patient's speech is fluent and nonpressured. Mood/Affect: Patient reports their mood is euthymic and affect is congruent Suicidality/Homicidality: Patient denies having any suicidal or homicidal ideation intent or plan. Perceptions: Patient denies any visual hallucinations and denies any auditory hallucinations Though content/process: Persecutory delusions and paranoia Memory and concentration: AOX3, grossly intact for the purposes of this session. 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 -Continue bedside sitter for safety -Stop Abilify 10 mg daily given patient has been vomiting. Unclear if emesis is due to Abilify and/or Ativan. -Start Zyprexa 5 mg qHS for psychosis -Change Haldol to Zyprexa 5 mg q8h PRN for agitation/aggression -Cannot leave AMA at this time. Patient will need a petition and certification if attempting to leave AMA. -Art Gilder spoke with patient about substance abuse and the harmful effects on medical and mental health -When medically stable, patient is eligible for transfer to a psych bed when available. -Communicated plan to patient's nurse -Will continue to follow along
[2022-01-01] MEDS ORDERED: OLANZapine 5 MG TAB PO SCH (21:00)
--- NOTE | 2022-01-02 01:47 | P.PN ---
Subjective Progress Note Date: 01/01/22 Patient is a 21-year-old male with a known history of Asperger's, tetralogy of Fallot, anxiety, marijuana use was brought to the hospital as he was petition by his parents. According to the petition family noticed blood patient has been showing manic and psychotic behavior. Patient also having paranoid ideation. Denies any suicidal ideation or homicidal ideation. Otherwise patient currently denies any complaints of chest pain or shortness of breath. No nausea vomiting abdominal pain or diarrhea. No dysuria or hematuria. Denies any recent illnesses. Laboratory data showed sodium 141 potassium 4.3 chloride 101 bicarb is 24 BUN 12 and creatinine 0.81 Patient was tested positive for COVID-19 infection while in the ER and was transferred to medicine service for further management. Psychiatry has seen the patient and recommended inpatient admission. 01/01/2022 Patient is currently lying in the bed. Awake alert and oriented. No complaints of chest pain or shortness breath. Currently on room air. Tolerating oral diet. No headache or dizziness or lightheadedness. Otherwise patient is being continued on COVID isolation. Laboratory showed sodium 141 potassium 4.3 chloride 101 bicarb is 24 BUN 12 and creatinine 0.81 and calcium 10.5. Patient is still tested positive for COVID-[address] Psychiatric recommends inpatient psych admission. Objective - Vital Signs Vital signs: Vital Signs Temp 98.0 F 01/01/22 14:00 Pulse 56 L 01/01/22 14:00 Resp 18 01/01/22 14:00 BP 100/60 01/01/22 14:00 Pulse Ox 98 01/01/22 14:00 FiO2 Intake & Output 12/31/21 01/01/22 01/01/22 18:59 06:59 18:59 Weight 56.699 kg Other: # Voids 2 - Exam PHYSICAL EXAMINATION: Patient is lying in the bed comfortably, no acute distress, awake alert and oriented.. HEENT: Normocephalic. Neck is supple. Pupils reactive. Nostrils clear. Oral cavity is moist. Neck reveals no JVD, carotid bruits, or thyromegaly. CHEST EXAMINATION: Trachea is central. Symmetrical expansion. Lung loomis clear to auscultation and percussion. CARDIAC: Normal S1, S2 with no gallops. No murmurs ABDOMEN: Soft. Bowel sounds present. Nontender. No organomegaly. No abdominal bruits. Extremities: reveal no edema. No clubbing or cyanosis Neurologically awake, alert, oriented x3 with well-coordinated movements. No focal deficits noted Skin: No rash or skin lesions. Psychiatric: Coperative. Nonsuicidal, Musculoskeletal: No joint swelling or deformity. Normal range of motion. - Labs CBC & Chem 7: 12/31/21 11:04 Assessment and Plan Assessment: Acute COVID-19 infection. Patient is currently hypoxic. Not symptomatic Acute psychosis Possible schizophrenia History of tetralogy of Fallot s/p surgery 2-year-age Asperger's Marijuana and vaping DVT prophylaxis with Lovenox subcu Plan: Patient will be continued on supportive care for COVID-19 infection. Patient is currently not hypoxic. Continue with multivitamins and Lovenox subcu for DVT prophylaxis. Patient was seen by psychiatry and recommended inpatient psychiatric admission. Follow-up inflammatory markers. Patient will be transferred to psychiatric unit after 5-day isolation.
[2022-01-02] MEDS: ACETAMINOPHEN TAB 325 MG TAB PO PRN ×2 (09:26→14:30)
[2022-01-02] MEDS: CHOLECALCIFEROL 25 MCG (1000 IU) TABLET PO SCH (09:29)
[2022-01-02] MEDS: ENOXAPARIN 40 MG/0.4 ML SYRINGE SQ SCH (09:29)
[2022-01-02] MEDS: ASCORBIC ACID 500 MG TAB PO SCH (09:29)
[2022-01-02] MEDS: ZINC SULFATE 220 MG CAP PO SCH (09:29)
[2022-01-02 11:41] LABS: Basophils # (A) 0.07 X 10*3/uL (0.00-0.10); Basophils % (A) 0.8 %; Eosinophils # (A) 0.03 X 10*3/uL (0.04-0.35); Eosinophils % (A) 0.4 %; HCT 43.7 % (39.6-50.0); HGB 14.6 g/dL (13.0-17.0); Immature Grans, Automated 0.2 %; Lymphocytes # (A) 1.03 X 10*3/uL (0.90-5.00); Lymphocytes % (A) 12.1 %; MCH 29.7 pg (27.0-32.0); MCHC 33.4 g/dL (32.0-37.0); MCV 88.8 fL (80.0-97.0); Mean Platelet Volume 10.7 fL (9.5-12.2); Monocytes # (A) 1.31 X 10*3/uL (0.20-1.00); Monocytes % (A) 15.3 %; NRBC Per 100 WBC 0 /100 WBCS (0.0-0.0); Neutrophils # (A) 6.08 X 10*3/uL (1.80-7.70); Neutrophils % (A) 71.2 %; Platelet Count 224 X 10*3/uL (140-440); RBC 4.92 X 10*6/uL (4.40-5.60); RDW 12.3 % (11.5-14.5); WBC 8.54 X 10*3/uL (4.50-10.00)
[2022-01-02 11:48] LABS: Anion Gap 11.2 mmol/L (10.00-18.00); BUN/Creat Ratio 11.3 Ratio (12.00-20.00); Blood Urea Nitrogen 11.3 mg/dL (9.0-27.0); Calcium 9.4 mg/dL (8.7-10.3); Carbon Dioxide 23.8 mmol/L (20.0-27.5); Non-African American GFR(CKD) 107.9 (60.0-200.0); Potassium 4.2 mmol/L (3.5-5.5)
[2022-01-02] MEDS ORDERED: OLANZapine 10 MG VIAL IM PRN (13:57)
--- NOTE | 2022-01-02 14:28 | P.PN ---
Progress Note - Text Progress Note Date: 01/02/22 Interval History: Patient was seen at the bedside this morning and was watching television. Acc ording to nurse, patient at times is delusional and speaking to himself in his room and also pacing at times. Patient was agreeable to speak to blurb writer. He minimized his need for being in the hospital and demanded discharge. He was difficult to redirect. He was fairly superficial/evasive during conversation. He did make several remarks about having a "secret federal coat" and states that he can get out of the hospital whenever he wants. He claims that he has "top security clearance" and claims that blurb writer does not. He made several other bizarre statements during conversation and appeared to be often pacing more the room and also acting impulsively. He is denying any auditory or visual hallucinations. He is denying any suicidal or homicidal ideations intent or plan. He claims that his sleep is fair at nighttime. Mental Status Exam: General Appearance: Patient appears to be short in stature, stated age is alert, uncooperative and hostile. Patient appears to have fair hygiene and grooming wearing hospital gown with good eye contact. Behavior: Patient is sitting at the side of his bed r. Hostile at times. Pacing. Superficial Speech: Patient's speech is fluent and nonpressured. [place]. Mood/Affect: Patient reports their mood is "fine" and affect is incongruent Suicidality/Homicidality: Patient denies having any suicidal or homicidal ideation intent or plan. Perceptions: Patient denies any visual hallucinations and denies any auditory hallucinations Though content/process: Persecutory delusions and paranoia, bizarre delusions. Memory and concentration: AOX3, grossly intact for the purposes of this session. Judgment and insight: poor Assessment schizophrenia Cannabis use disorder, severe Plan: -At this time patient DOES meet criteria for inpatient psychiatric admission however due to patient having covid-19 will attempt to treat patient on the medical floors. -Continue bedside sitter for safety -Increase Zyprexa 10 mg qHS for psychosis -Zyprexa 5 mg q6h IM PRN and PO PRN options for agitation/aggression -Cannot leave AMA at this time. Patient will need a petition and certification if attempting to leave AMA. -Coffee Machine Technician spoke with patient about substance abuse and the harmful effects on medical and mental health -Communicated plan to patient's nurse -Will continue to follow along
--- NOTE | 2022-01-02 16:36 | XR ---
EXAMINATION TYPE: XR chest 1V portable DATE OF EXAM: 01/02/2022 CLINICAL HISTORY: COVID positive. TECHNIQUE: Single frontal view of the chest is obtained. COMPARISON: None FINDINGS: Overlying sternal wires are present. Left hilar consolidation with air bronchograms. Right lung is clear. Cardiac silhouette size appears within normal limits. No pleural effusion or pneumotho rax seen bilaterally. Osseous structures are intact. IMPRESSION: Focal left hilar consolidation and/or atelectasis.
[2022-01-02] MEDS ORDERED: LORazepam 2 MG/ML INJ IM PRN (20:50)
[2022-01-02] MEDS ORDERED: LORazepam 1 MG/0.5 ML VIAL IM PRN (20:52)
[2022-01-02] MEDS: LITHIUM CARBONATE 300 MG CAP PO SCH (21:54)
[2022-01-02] MEDS: OLANZapine 10 MG TAB PO SCH (21:54)
[2022-01-03] MEDS: ACETAMINOPHEN TAB 325 MG TAB PO PRN (01:33)
[2022-01-03] MEDS: ASCORBIC ACID 500 MG TAB PO SCH (07:25)
[2022-01-03] MEDS: ENOXAPARIN 40 MG/0.4 ML SYRINGE SQ SCH (07:26)
[2022-01-03] MEDS: LITHIUM CARBONATE 300 MG CAP PO SCH ×2 (07:26→20:55)
[2022-01-03] MEDS: ZINC SULFATE 220 MG CAP PO SCH (07:26)
[2022-01-03] MEDS: CHOLECALCIFEROL 25 MCG (1000 IU) TABLET PO SCH (07:26)
--- NOTE | 2022-01-03 08:38 | PN ---
PROGRESS NOTE SUBJECTIVE: This is a 21-year-old gentleman who had a COVID, also had features of psychosis. The patient is not very cooperative with exams. The vitals appears to be stable except some mild tachycardia yesterday. Otherwise, white count is 8.54. No chest pain. No palpitations. PHYSICAL EXAMINATION: VITAL SIGNS: Pulse is 94, blood pressure 114/69, respirations 16. CHEST: Clear to auscultation. CARDIOVASCULAR: S1, S2. ABDOMEN: Soft. NERVOUS SYSTEM: No focal deficits. LABS: Reviewed. ASSESSMENT: 1. Acute COVID-19 infection. 2. Acute psychosis. 3. History of tetralogy of Fallot. 4. History of Asperger's. 5. History of marijuana and vaping. RECOMMENDATIONS: Recommend to continue current management and symptomatic treatment. Ensure oxygenation. I would also recommend evaluation of D-dimer. Lovenox with usual treatment for the COVID. I would also recommend to closely monitor. Further recommendation to follow. Portable chest x-ray baseline as well. MMODL / IJN: [id number] /
[2022-01-03 10:33] LABS: Basophils # (A) 0.05 X 10*3/uL (0.00-0.10); Basophils % (A) 0.7 %; Eosinophils # (A) 0.01 X 10*3/uL (0.04-0.35); Eosinophils % (A) 0.1 %; HCT 45.4 % (39.6-50.0); HGB 15.3 g/dL (13.0-17.0); Immature Grans, Automated 0.3 %; Lymphocytes # (A) 1.63 X 10*3/uL (0.90-5.00); Lymphocytes % (A) 22.9 %; MCHC 33.7 g/dL (32.0-37.0); Mean Platelet Volume 11.1 fL (9.5-12.2); Monocytes # (A) 1.38 X 10*3/uL (0.20-1.00); Monocytes % (A) 19.4 %; NRBC Per 100 WBC 0 /100 WBCS (0.0-0.0); Neutrophils # (A) 4.04 X 10*3/uL (1.80-7.70); Neutrophils % (A) 56.6 %; Platelet Count 235 X 10*3/uL (140-440); RDW 12.4 % (11.5-14.5); WBC 7.13 X 10*3/uL (4.50-10.00)
[2022-01-03 10:49] LABS: African American GFR (CKD) 116.5 (60.0-200.0); Albumin 4.4 g/dL (3.8-4.9); Albumin/Globulin Ratio 2.08 (1.60-3.17); Anion Gap 8.6 mmol/L (10.00-18.00); BUN/Creat Ratio 10.94 Ratio (12.00-20.00); Blood Urea Nitrogen 11.6 mg/dL (9.0-27.0); Calcium 9.4 mg/dL (8.7-10.3); Carbon Dioxide 28.7 mmol/L (20.0-27.5); Globulin 2.1 g/dL (1.6-3.3); Non-African American GFR(CKD) 100.5 (60.0-200.0); Potassium 4.8 mmol/L (3.5-5.5); Total Bilirubin 0.5 mg/dL (0.30-1.20); Total Protein 6.6 g/dL (6.2-8.2)
[2022-01-03] MEDS: OLANZapine 7.5 MG TAB PO PRN ×2 (13:10→21:31)
--- NOTE | 2022-01-03 13:29 | P.PN ---
Progress Note - Text Progress Note Date: 01/03/22 Interval History: Patient was seen at the bedside this morning and was eating his lunch. Patient was refusing his meds yesterday and today apparently was aggressive and impulsive today. He is denying and depression or anxiety. He apparently did not take medications and did not sleep well last night. He continues to be delusional and bizarre. yelling at automotive service writer at times. very poor insight and judgment. According to nurse, patient at times is delusional and speaking to himself in his room and also pacing at times. He is denying any auditory or visual hallucinations. He is denying any suicidal or homicidal ideations intent or plan. Mental Status Exam: General Appearance: Patient appears to be short in stature, stated age is alert, uncooperative and hostile. Patient appears to have fair hygiene and grooming wearing hospital gown with good eye contact. Behavior: Patient is sitting at the side of his bed. hostile at times. aggressive. Speech: Patient's speech is fluent and nonpressured. Art. Mood/Affect: Patient reports their mood is "ok" and affect is incongruent Suicidality/Homicidality: Patient denies having any suicidal or homicidal ideation intent or plan Perceptions: Patient denies any visual hallucinations and denies any auditory hallucinations Though content/process: Persecutory delusions and paranoia, bizarre delusions. Memory and concentration: AOX3, grossly intact for the purposes of this session. Judgment and insight: poor, impulsive Assessment Schizophrenia Cannabis use disorder, severe Plan: -At this time patient DOES meet criteria for inpatient psychiatric admission however due to patient having covid-19 will attempt to treat patient on the medical floors. -Continue bedside sitter for safety -continue Zyprexa 10 mg qHS for psychosis -increase Zyprexa 7.5 mg q6h IM PRN and PO PRN options for agitation/aggression -Cannot leave AMA at this time. Patient will need a petition and certification if attempting to leave AMA. -Floral Designer spoke with patient about substance abuse and the harmful effects on medical and mental health -Communicated plan to patient's nurse -Will continue to follow along. once patient is cleared medically then she can be transferred to the MHU.
[2022-01-03] MEDS: OLANZapine 10 MG TAB PO SCH (20:55)
[2022-01-03] MEDS: ALBUTEROL HFA INHALER INHALATION SCH (21:21)
[2022-01-04] MEDS: ENOXAPARIN 40 MG/0.4 ML SYRINGE SQ SCH (07:32)
[2022-01-04] MEDS: LITHIUM CARBONATE 300 MG CAP PO SCH ×2 (07:35→20:21)
[2022-01-04] MEDS: ALBUTEROL HFA INHALER INHALATION SCH (07:48)
[2022-01-04] MEDS: OLANZapine 7.5 MG TAB PO PRN (07:48)
[2022-01-04] MEDS: CHOLECALCIFEROL 25 MCG (1000 IU) TABLET PO SCH (10:05)
[2022-01-04] MEDS: ZINC SULFATE 220 MG CAP PO SCH (10:05)
[2022-01-04] MEDS: ASCORBIC ACID 500 MG TAB PO SCH (10:05)
[2022-01-04] MEDS ORDERED: HALOPERIDOL LACTATE 5 MG/ML 1 ML VIAL IM PRN (11:19)
[2022-01-04] MEDS ORDERED: LORazepam 1 MG/0.5 ML VIAL IM PRN (11:21)
[2022-01-04] MEDS ORDERED: LORazepam 1 MG TAB PO PRN (11:21)
[2022-01-04] MEDS: haloperidoL 5 MG TAB PO PRN ×2 (11:32→20:21)
[2022-01-04] MEDS: CEFDINIR 300 MG CAP PO SCH ×2 (14:18→20:25)
--- NOTE | 2022-01-04 14:27 | P.PN ---
Progress Note - Text Progress Note Date: 01/04/22 Interval History: Patient was seen at the bedside this afternoon however patient was sleeping. Nurse taking care of patient states that patient was agitated earlier this morning and was given Haldol 5 mg and Ativan 2mg PO as a prn for agitation which was effective. patient continues on a 1:1 security sitter. Mental Status Exam: General Appearance: Patient appears to be short in stature, stated age, seen lying in bed somnolent. Behavior: Patient was seen lying in bed somnolent. Speech: Unable to assess Mood/Affect: Unable to assess Suicidality/Homicidality: Unable to assess Perceptions: Unable to assess Though content/process: Unable to assess Memory and concentration: Unable to assess Judgment and insight: poor, impulsive Assessment: Schizophrenia Cannabis use disorder, severe Plan: -At this time patient DOES meet criteria for inpatient psychiatric admission however due to patient having covid-19 will attempt to treat patient on the medical floors or transfer patient to out of facility psych facility. -Continue bedside sitter for safety -Medications: d/c zyprexa and replace with Invega PO 3 mg BID for psychosis/mood stabilization, Haldol and Ativan q6h IM PRN and PO PRN options for agitation/aggression -Cannot leave AMA at this time. Patient will need a petition and certification if attempting to leave AMA. -Communicated plan to patient's nurse -Will continue to follow along. once patient is cleared medically then she can be transferred to psych either in facility or outside.
[2022-01-04] MEDS: PALIPERIDONE 3 MG TAB.ER.24 PO SCH (20:21)
[2022-01-04] MEDS: DOXYCYCLINE 100 MG CAP PO SCH (20:25)
--- NOTE | 2022-01-04 21:06 | PN ---
PROGRESS NOTE DATE OF SERVICE: 01/03/2022 SUBJECTIVE: This is a 21-year-old gentleman who was admitted with acute COVID-19 infection, was psychotic last night. Today, the patient is little more cooperative. The chest x-ray showed some focal left hilar atelectasis. No chest pain. No palpitations. No fever. The procalcitonin was 0.12. PHYSICAL EXAMINATION: VITAL SIGNS: Pulse is 95, blood pressure 110/70, respirations 17. HEENT: Conjunctivae normal. NECK: No JVD. RESPIRATIONS: Breath sounds diminished at the bases. A few scattered rhonchi. ABDOMEN: Soft. NERVOUS SYSTEM: No focal deficits. LABS: Reviewed. ASSESSMENT: 1. Acute COVID-19 infection with possible left hilar pneumonia. 2. Acute psychosis. 3. History of tetralogy of Fallot. 4. History of Asperger's. 5. History of THC and vaping. RECOMMENDATIONS: Recommend to continue current medications, symptomatic treatment. Incentive spirometry. Otherwise, I would also add bronchodilators to the current regimen. Further recommendations to follow. The rest of the recommendations per psychiatric team. MMODL / IJN: [id number] /
[2022-01-04] MEDS: ACETAMINOPHEN TAB 325 MG TAB PO PRN (21:51)
[2022-01-05] MEDS: ENOXAPARIN 40 MG/0.4 ML SYRINGE SQ SCH (07:34)
[2022-01-05] MEDS: CHOLECALCIFEROL 25 MCG (1000 IU) TABLET PO SCH (07:36)
[2022-01-05] MEDS: ZINC SULFATE 220 MG CAP PO SCH (07:36)
[2022-01-05] MEDS: LITHIUM CARBONATE 300 MG CAP PO SCH ×2 (07:36→23:50)
[2022-01-05] MEDS: CEFDINIR 300 MG CAP PO SCH ×2 (07:36→23:52)
[2022-01-05] MEDS: DOXYCYCLINE 100 MG CAP PO SCH ×2 (07:37→23:52)
[2022-01-05] MEDS: ASCORBIC ACID 500 MG TAB PO SCH (07:37)
[2022-01-05] MEDS: PALIPERIDONE 3 MG TAB.ER.24 PO SCH (07:37)
--- NOTE | 2022-01-05 14:16 | P.PN ---
Progress Note - Text Progress Note Date: 01/05/22 Interval History: Patient was seen at the bedside this afternoon and was laying in his bed watch ing television. Patient is agreeable to speak to technical proposal writer was initially fairly cooperative. He claims that he was brought into the hospital for "delusions and hallucinations" however states that he is not experiencing this at this time. He claims that he wants to go home and was focused on discharge. He began becoming more irritable and hostile towards technical proposal writer as the conversation progressed. He is denying any depression or anxiety at this time however patient shows low frustration tolerance and was slamming things in his room. He is denying any auditory or visual hallucinations at this time. He asked technical proposal writer "what happened to the papers that I signed". He also asked technical proposal writer what is at the end of this hallway. He threatened to eren the hospital and technical proposal writer several times. He was bizarre at times and continues to be inappropriate. He claims that he is tolerating medications well and slept fairly last night. Due to patient's increase in agitation during conversation and technical proposal writer offered patient po haldol and ativan however he refused and asked Nurse to administer IM instead as patient was not directable and becoming more agitated. Mental Status Exam: General Appearance: Patient appears to be short in stature, stated age, seen lying in bed, thin. Behavior: Patient was seen lying in bed, then became more awake and agitated. Speech: Rambles at times. Somewhat illogical and bizarre. Mood/Affect: He claims that his mood is "fine" and affect is incongruent Suicidality/Homicidality: Denies Perceptions: Denies Though content/process: Rambles, illogical at times. Inappropriate. Th reatening and demanding. Memory and concentration: Unable to assess Judgment and insight: poor, impulsive Assessment: Schizophrenia Cannabis use disorder, severe Plan: -At this time patient DOES meet criteria for inpatient psychiatric admission however due to patient having covid-19 will attempt to treat patient on the medical floors or transfer patient to out of facility psych facility. -Continue bedside sitter for safety -Medications: increase Invega PO 6 mg BID for psychosis/mood stabilization, Haldol and Ativan q6h IM PRN and PO PRN options for agitation/aggression. will likely give patient ARGUELLES tomorrow if he is agreeable to this. -Cannot leave AMA at this time. Patient will need a petition and certification if attempting to leave AMA. -Communicated plan to patient's nurse -Will continue to follow along. once patient is cleared medically then she can be transferred to psych either in facility or outside.
--- NOTE | 2022-01-05 14:18 | P.CONS ---
History of Present Illness - Reason for Consult Consult date: 01/04/22 Covid pneumonia Requesting physician: Sharona Ortiz - Chief Complaint Mental status changes x few days - History of Present Illness patient is a 21-year-old male presenting to the ER 5 days ago on 12/30/2021 patient apparently was brought into the ER by the police concern for possible psychotic behavior and the patient was giving statement about the government monitoring him and has been evaluated by psych during this hospital stay patient on presentation to the hospital was afebrile, however he did have a low-grade fever of 99.8 F on 01/02/2022 no fever since then the patient is currently breathing comfortably on room air the patient denies having any chest pain or shortness of breath or cough no nausea no vomiting no abdominal pain no diarrhea patient has been insisting on going home and seems to have been using foul language vomiting diarrhea or any other changes reported by the nursing staff patient did have a positive COVID test on 01/01/2022 he did have a normal white count with a lymphopenia kidney function has been normal limits was normal procalcitonin was elevated 0.12 patient did have a chest x-ray completed on 02 January which shows a focal left hilar consolidation and or atelectasis infectious disease was consulted because of fever and pneumonia and antibiotic recommendation Review of Systems Positive point has been mentioned in the HPI rest of the systems are negative Past Medical History Past Medical History: Neurologic Disorder Additional Past Medical History / Comment(s): Tetrology of Fallot. Asbergers. History of Any Multi-Drug Resistant Organisms: None Reported Additional Past Surgical History / Comment(s): Heart surgery X1. Mystic teeth extracted. Past Anesthesia/Blood Transfusion Reactions: No Reported Reaction, Motion Sickness Past Psychological History: Anxiety Smoking Status: Vaper Past Alcohol Use History: None Reported Past Drug Use History: Marijuana - Past Family History Mother Family Medical History: No Reported History Medications and Allergies Home Medications Medication Instructions Recorded Confirmed Type Multivitamins, Thera [Multivitamin 1 tab PO DAILY 08/20/20 07/27/21 History (formulary)] Cholecalciferol [Vitamin D3 (25 25 mcg PO DAILY 07/26/21 07/27/21 History Mcg = 1000 Iu)] Vitamin B Complex 1 cap PO DAILY 07/26/21 07/27/21 History Paliperidone [Invega] 3 mg PO HS 30 Days 07/29/21 Rx Allergies Allergy/AdvReac Type Severity Reaction Status Date / Time amoxicillin Allergy Rash/Hives Verified 12/30/21 17:53 Physical Exam Vitals: Intake and Output 01/03/22 01/04/22 01/04/22 22:59 06:59 14:59 Other: Voiding Method Toilet # Voids 4 GENERAL DESCRIPTION: Young male lying in bed, no distress. No tachypnea or accessory muscle of respiration use. HEENT: Shows Pallor , no scleral icterus. Oral mucous membrane is dry. No pharyngeal erythema or thrush NECK: Trachea central, no thyromegaly. LUNGS: Unlabored breathing. Decreased breath sound the bases, No wheeze or crackle. HEART: S1, S2, regular rate and rhythm. No loud murmur ABDOMEN: Soft, no tenderness , guarding or rigidity, no organomegaly EXTREMITIES: No edema of feet. SKIN: No rash, no masses palpable. NEUROLOGICAL: The patient is awake, alert, oriented x3, mood and affect normal. Results CBC & Chem 7: 01/03/22 06:55 01/03/22 06:48 Labs: Abnormal Lab Results - Last 24 Hours (Table) 01/03/22 01/03/22 01/03/22 Range/Units 06:48 06:48 06:55 Monocytes # 1.38 H (0.20-1.00) X 10*3/uL Eosinophils # 0.01 L (0.04-0.35) X 10*3/uL Carbon Dioxide 28.7 H (20.0-27.5) mmol/L Anion Gap 8.60 L (10.00-18.00) mmol/L BUN/Creatinine Ratio 10.94 L (12.00-20.00) Ratio Procalcitonin 0.12 H (0.02-0.09) ng/mL Assessment and Plan (1) Pneumonia Current Visit: Yes Status: Acute Code(s): J18.9 - PNEUMONIA, UNSPECIFIED ORGANISM SNOMED Code(s): 881953728 (2) COVID Current Visit: Yes Status: Acute Code(s): U07.1 - COVID-19 SNOMED Code(s): 011140924 Plan: 1patient with a positive COVID test however the patient is currently breathing comfortably on room air no hypoxemia no white count the patient the chest x-ray did show small focal opacity which would be compatible with possible community- acquired pneumonia and the patient also have mild elevated procalcitonin. 2there is no need for steroids or remdesivir continue with the vitamin C zinc and Lovenox. 3we will plan on IV Rocephin and doxycycline however the patient will not leave any IV per the nursing staff hence antibiotic switched over to cefdinir and oral doxycycline. We will follow on clinical condition and cultures to further adjust medication if needed Thank you for this consultation will follow this patient along with you Time with Patient: Greater than 30
--- NOTE | 2022-01-05 14:34 | PN ---
PROGRESS NOTE DATE OF SERVICE: 01/04/2022 DATE OF SERVICE: 01/04/2022 SUBJECTIVE: This is a 21-year-old gentleman who was admitted with acute COVID-19 infection, also has some psychosis. The patient is not hypoxic. Psychiatry is following the patient closely. Psychiatry has recommended bedside sitter for safety. Recommend psych facility transfer once the medical condition stabilizes. No chest pain, no palpitation. PHYSICAL EXAMINATION: VITAL SIGNS: Pulse is 95, blood pressure 136/75, respirations 16. CHEST: Clear to auscultation. CARDIOVASCULAR: S1, S2 muffled. ABDOMEN: n NERVOUS SYSTEM: No focal deficits. LABS: Reviewed. ASSESSMENT: 1. Acute COVID-19 infection. 2. Acute psychosis. 3. History of tetralogy of Fallot. 4. History of Asperger's. 5. History of THC and vaping. RECOMMENDATIONS: Recommend to continue current medications, monitoring. Otherwise, follow the protocol, closely follow. See orders for further details. Prognosis guarded. Further recommendations to follow. MMODL / IJN: [id number] / MTDD
[2022-01-05] MEDS: PANTOPRAZOLE 40 MG TABLET PO SCH (15:35)
[2022-01-05] MEDS: PALIPERIDONE 6 MG TAB.ER.24 PO SCH (23:50)
[2022-01-06] MEDS: haloperidoL 5 MG TAB PO PRN (03:52)
[2022-01-06] MEDS: LITHIUM CARBONATE 300 MG CAP PO SCH ×2 (08:56→19:49)
[2022-01-06] MEDS: PALIPERIDONE 6 MG TAB.ER.24 PO SCH ×2 (08:56→19:50)
[2022-01-06] MEDS: PANTOPRAZOLE 40 MG TABLET PO SCH (08:56)
[2022-01-06] MEDS: DOXYCYCLINE 100 MG CAP PO SCH ×2 (08:56→19:49)
[2022-01-06] MEDS: ASCORBIC ACID 500 MG TAB PO SCH (08:56)
[2022-01-06] MEDS: CHOLECALCIFEROL 25 MCG (1000 IU) TABLET PO SCH (08:56)
[2022-01-06] MEDS: ZINC SULFATE 220 MG CAP PO SCH (08:56)
[2022-01-06] MEDS: CEFDINIR 300 MG CAP PO SCH ×2 (08:57→19:48)
[2022-01-06] MEDS: ENOXAPARIN 40 MG/0.4 ML SYRINGE SQ SCH (08:57)
[2022-01-06] MEDS ORDERED: PALIPERIDONE 3 MG TAB.ER.24 PO SCH (09:00)
[2022-01-06] MEDS ORDERED: hydrOXYzine pamoate 25 MG CAP PO PRN (12:05)
[2022-01-06] MEDS ORDERED: LORazepam 1 MG TAB PO PRN (12:06)
--- NOTE | 2022-01-06 12:56 | P.PN ---
Progress Note - Text Progress Note Date: 01/06/22 Interval History: Patient was seen at the bedside this afternoon and was laying in his bed sleep ing. Patient recently received Haldol by mouth when necessary apparently for anxiety and agitation at approximately 4 AM this morning. Patient was too lethargic and not want to speak with entry writer today. He remains on security one to one and currently awaiting transfer to mental health unit. Comber Fixer spoke with patient's nurse over the phone who states that patient was anxious earlier and was requesting prn po meds for the patient. Apparently patient had a difficult time with sleep last night. He has been taking his paliperidone since yesterday. Mental Status Exam: General Appearance: Patient appears to be short in stature, stated age, seen lying in bed, thin. Behavior: Patient was seen lying in bed, somnolent Speech: Unable to assess Mood/Affect: Unable to assess Suicidality/Homicidality: Unable to assess Perceptions: Unable to assess Though content/process: Able to assess Memory and concentration: Unable to assess Judgment and insight: poor, impulsive Assessment: Schizophrenia Cannabis use disorder, severe Plan: -At this time patient DOES meet criteria for inpatient psychiatric admission however due to patient having covid-19 will attempt to treat patient on the medical floors or transfer patient to out of facility psych facility. -Continue bedside sitter for safety -Medications: Invega PO 6 mg BID for psychosis/mood stabilization, Haldol and Ativan q6h IM PRN and PO PRN options for agitation/aggression. will likely give patient ARGUELLES tomorrow if he is agreeable to this. I added trazodone 100 mg daily at bedtime when necessary for insomnia. Vistaril 50 mg 3 times a day when necessary for anxiety. Added Ativan po 1 mg every 6 hours when necessary for anxiety. -Cannot leave AMA at this time. Patient will need a petition and certification if attempting to leave AMA. -Communicated plan to patient's nurse -Will continue to follow along if requested over the weekend. once patient is cleared medically then she can be transferred to psych either in facility or out side. -please call with any questions.
--- NOTE | 2022-01-06 14:48 | P.PN ---
Subjective Progress Note Date: 01/06/22 This is a 21-year-old male who was recently admitted with acute COVID-19 infection also some psychosis. Patient is not hypoxic although infectious disease is following and has started oral antibiotics. Psychiatry following and making adjustments to medications and meets criteria for inpatient psych [facility] due to Covid will not be cleared from precautions until 01/09/2022. Case management is following and have been placing referrals outpatient although no one is accepting at this time. Patient is requiring a product safety technician along with security due to his erratic behavior and will continue to monitor closely and use as needed medications. Attempts to avoid restraining if possible. Patient is afebrile denies chest pain or shortness of breath. Patient has been walking the halls in the rooms multiple times with no hypoxia or respiratory symptoms. Patient is tolerating diet with no reports of nausea or vomiting noted. Review of systems: Constitutional: No reports of fatigue, fever, or chills Cardiovascular: No reports of chest pain or palpitations Respiratory: No reports of shortness of breath or cough GI: No reports of nausea, no reports of of vomiting, or diarrhea : No reports of dysuria or retention Neurovascular: No reports of generalized weakness All medications have been reviewed Active Medications Acetaminophen (Acetaminophen Tab 325 Mg Tab) 650 mg PO Q6HR PRN PRN Reason: Mild Pain or Fever > 100.5 Last Admin: 01/04/22 21:51 Dose: 325 mg Ascorbic Acid (Ascorbic Acid 500 Mg Tab) 500 mg PO DAILY [facility] Last Admin: 01/06/22 08:56 Dose: 500 mg Cefdinir (Cefdinir 300 Mg Cap) 300 mg PO BID [facility]; Protocol Last Admin: 01/06/22 08:57 Dose: 300 mg Cholecalciferol (Cholecalciferol 25 Mcg (1000 Iu) Tablet) 25 mcg PO DAILY [facility] Last Admin: 01/06/22 08:56 Dose: 25 mcg Doxycycline Monohydrate (Doxycycline 100 Mg Cap) 100 mg PO BID [facility]; Protocol Last Admin: 01/06/22 08:56 Dose: 100 mg Enoxaparin Sodium (Enoxaparin 40 Mg/0.4 Ml Syringe) 40 mg SQ DAILY [facility] Last Admin: 01/06/22 08:57 Dose: Not Given Haloperidol (Haloperidol 5 Mg Tab) 5 mg PO Q6HR PRN PRN Reason: Agitation Last Admin: 01/06/22 03:52 Dose: 5 mg Haloperidol Lactate (Haloperidol Lactate 5 Mg/Ml 1 Ml Vial) 5 mg IM Q6HR PRN PRN Reason: Agitation or Acute Psychosis Last Admin: 01/05/22 14:01 Dose: 5 mg Hydroxyzine Pamoate (Hydroxyzine Pamoate 25 Mg Cap) 50 mg PO TID PRN PRN Reason: Anxiety Opolis Carbonate (Opolis Carbonate 300 Mg Cap) 300 mg PO BID [facility] Last Admin: 01/06/22 08:56 Dose: 300 mg Lorazepam (Lorazepam 1 Mg/0.5 Ml Vial) 2 mg IM Q6HR PRN PRN Reason: Agitation Lorazepam (Lorazepam 1 Mg Tab) 1 mg PO Q6HR PRN PRN Reason: Anxiety Naloxone HCl (Naloxone 0.4 Mg/Ml 1 Ml Vial) 0.2 mg IV Q2M PRN PRN Reason: Opioid Reversal Paliperidone (Paliperidone 6 Mg Tab.Er.24) 6 mg PO BID [facility] Last Admin: 01/06/22 08:56 Dose: 6 mg Pantoprazole Sodium (Pantoprazole 40 Mg Tablet) 40 mg PO AC-[id number] [facility] Last Admin: 01/06/22 08:56 Dose: 40 mg Trazodone HCl (Trazodone Hcl 100 Mg Tab) 100 mg PO HS PRN PRN Reason: Insomnia Zinc Sulfate (Zinc Sulfate 220 Mg Cap) 220 mg PO DAILY [facility] Last Admin: 01/06/22 08:56 Dose: 220 mg PHYSICAL EXAMINATION: GENERAL: The patient is alert and oriented , thin built young male, well- nourished HEENT: Pupils are round and equally reacting to light. EOMI. no scleral icterus. No conjunctival pallor. Normocephalic, atraumatic. No pharyngeal erythema. No thyromegaly. CARDIOVASCULAR: S1 and S2 muffled PULMONARY: diminished breath sounds bilaterally with no wheezing or rhonchi noted. ABDOMEN: soft. Nontender on exam. non-distended, normoactive bowel sounds. No palpable organomegaly. MUSCULOSKELETAL: No joint swelling or deformity. EXTREMITIES: No cyanosis, clubbing, or pedal edema. NEUROLOGICAL: Gross neurological examination did not reveal any focal deficits. SKIN: No rashes. Assessment: Acute COVID-19 infection Acute psychosis History of tetralogy of Fallot history of Aspergers History of THC and draping Full code Plan: Recommend to continue with current medications and management psychiatry following closely. Patient also requiring product safety technician and security at the bedside as patient has extremely erratic behavior with attempts at leaving. Patient is petitioned and meets criteria for inpatient psychiatry although patient is COVID-19 and due to protocol patient is not cleared from precautions until 01/09/2022. Case management also following and making referrals to other psychiatric facilities with no excepting facilities at this time. ID following as well and has patient started on Omnicef along with doxycycline, recommend continue with vitamin CMD, zinc, and Lovenox although patient has been refusing Lovenox. Patient has been walking frequently in the halls along with his room multiple times throughout the day. Prognosis is guarded and patient is petitioned unable to leave AMA at this time. Psychiatry following The impression and plan of care has been dictated by Chen Naylor, nurse practitioner as directed. Dr. Angel MD I have performed a history and examination and MDM of this patient, discussed the same with the dictator, and agree with the dictator's assessment and plan as written ,documented as a scribe. Based on total visit time, I have performed more than 50% of the visit. Any additional findings or plans will be noted. Objective - Vital Signs Vital signs: Vital Signs Temp 98.2 F 01/06/22 07:52 Pulse 117 H 01/06/22 09:04 Resp 17 01/06/22 07:52 BP 118/82 01/06/22 09:04 Pulse Ox 99 01/06/22 07:52 FiO2 Intake & Output 01/05/22 01/06/22 01/06/22 18:59 06:59 18:59 Other: Voiding Method Toilet # Voids 3 3 - Labs CBC & Chem 7: 01/03/22 06:55 01/03/22 06:48
--- NOTE | 2022-01-06 15:47 | P.PN ---
Subjective Progress Note Date: 01/05/22 Principal diagnosis: Pneumonia Patient is a 21 year male initially presented to the hospital 12/30/2021 for psychotic behavior, patient did have a low-grade fever on 12/17 and also have a positive core test chest x-ray however showing mostly left-sided acute infiltrate and mildly elevated though considering consult for possible committed community-acquired pneumonia. On today's evaluation that is 01/05/2022, the patient denies having any fever or chills, the patient is currently breathing comfortably on room air denies any chest pain or shortness of breath or cough no abdominal pain or diarrhea Objective - Vital Signs Vital signs: Vital Signs Temp 97.8 F 01/04/22 14:00 Pulse 95 01/04/22 14:00 Resp 17 01/04/22 19:25 BP 136/75 01/04/22 14:00 Pulse Ox 98 01/04/22 14:00 FiO2 Intake & Output 01/04/22 01/05/22 01/05/22 18:59 06:59 18:59 Other: Voiding Method Toilet # Voids 3 - Exam GENERAL DESCRIPTION: Young male lying in bed in no distress RESPIRATORY SYSTEM: Unlabored breathing , decreased breath sounds at bases HEART: S1 S2 regular rate and rhythm , ABDOMEN: Soft , no tenderness EXTREMITIES: No edema feet - Labs CBC & Chem 7: 01/03/22 06:55 01/03/22 06:48 Assessment and Plan (1) COVID Current Visit: Yes Status: Acute Code(s): U07.1 - COVID-19 SNOMED Code(s): 772306902 (2) Pneumonia Current Visit: Yes Status: Acute Code(s): J18.9 - PNEUMONIA, UNSPECIFIED ORGANISM SNOMED Code(s): 922416390 Plan: 1patient with a positive COVID test however the patient is currently breathing comfortably on room air no hypoxemia no white count the patient the chest x-ray did show small focal opacity which would be compatible with possible community- acquired pneumonia and the patient also have mild elevated procalcitonin. 2there is no need for steroids or remdesivir , patient to continue with the vitamin C zinc and Lovenox. 3the patient to continue with cefdinir and oral doxycycline for possible community acquired pneumonia. Time with Patient: Less than 30
--- NOTE | 2022-01-06 15:48 | P.PN ---
Subjective Progress Note Date: 01/06/22 Principal diagnosis: Pneumonia Patient is a 21 year male initially presented to the hospital 12/30/2021 for psychotic behavior, patient did have a low-grade fever on 12/17 and also have a positive core test chest x-ray however showing mostly left-sided acute infiltrate and mildly elevated though considering consult for possible committed community-acquired pneumonia. On today's evaluation that is 01/06/2022, the patient remains to be afebrile, the patient is breathing comfortably on room air, the patient denies any chest pain or shortness of breath or cough no abdominal pain or diarrhea Objective - Vital Signs Vital signs: Vital Signs Temp 98.2 F 01/06/22 07:52 Pulse 117 H 01/06/22 09:04 Resp 17 01/06/22 07:52 BP 118/82 01/06/22 09:04 Pulse Ox 99 01/06/22 07:52 FiO2 Intake & Output 01/05/22 01/06/22 01/06/22 18:59 06:59 18:59 Other: Voiding Method Toilet # Voids 3 3 - Exam GENERAL DESCRIPTION: Young male lying in bed in no distress RESPIRATORY SYSTEM: Unlabored breathing , decreased breath sounds at bases HEART: S1 S2 regular rate and rhythm , ABDOMEN: Soft , no tenderness EXTREMITIES: No edema feet - Labs CBC & Chem 7: 01/03/22 06:55 01/03/22 06:48 Assessment and Plan (1) COVID Current Visit: Yes Status: Acute Code(s): U07.1 - COVID-19 SNOMED Code(s): 191027250 (2) Pneumonia Current Visit: Yes Status: Acute Code(s): J18.9 - PNEUMONIA, UNSPECIFIED ORGANISM SNOMED Code(s): 067454363 Plan: 1patient with a positive COVID test however the patient is currently breathing comfortably on room air no hypoxemia no white count the patient the chest x-ray did show small focal opacity which would be compatible with possible community- acquired pneumonia and the patient also have mild elevated procalcitonin. 2there is no need for steroids or remdesivir , patient to continue with the vitamin C zinc and Lovenox. 3the patient seemed to showing clinical improvement and well continue with cefdinir and oral doxycycline for possible community acquired pneumonia to finish a 5 day course of therapy. Time with Patient: Less than 30
[2022-01-06] MEDS: traZODone HCL 100 MG TAB PO PRN (19:49)
--- NOTE | 2022-01-06 20:59 | PN ---
PROGRESS NOTE DATE OF SERVICE: 01/05/2022 SUBJECTIVE: This 21-year-old gentleman was admitted with acute COVID-19 infection with possible left hilar pneumonia. He is being closely monitored at this time. Infectious Disease seen the patient. The patient is still psychotic. OBJECTIVE: VITAL SIGNS: Pulse is 95, blood pressure 130/70, respirations 17. CHEST: Clear to auscultation. CARDIOVASCULAR: S1 and S2. ABDOMEN: Soft. NERVOUS SYSTEM: Nonfocal. LABORATORY DATA: Reviewed. ASSESSMENT: 1. Acute COVID-19 infection with possible left hilar community-acquired pneumonia. 2. Acute psychosis. 3. History of tetralogy of Fallot. 4. History of Asperger's. 5. History of THC and vaping. RECOMMENDATIONS: Recommend to continue current medications and symptomatic treatment. Otherwise, the patient is on Omnicef and doxycycline. Continue the rest of the COVID medications. Prognosis is guarded. Further recommendations to follow. MMODL / IJN: [id number] /
[2022-01-07] MEDS: LITHIUM CARBONATE 300 MG CAP PO SCH ×2 (09:08→20:17)
[2022-01-07] MEDS: DOXYCYCLINE 100 MG CAP PO SCH ×2 (09:08→20:17)
[2022-01-07] MEDS: ASCORBIC ACID 500 MG TAB PO SCH (09:08)
[2022-01-07] MEDS: CEFDINIR 300 MG CAP PO SCH ×2 (09:08→20:17)
[2022-01-07] MEDS: PANTOPRAZOLE 40 MG TABLET PO SCH (09:08)
[2022-01-07] MEDS: PALIPERIDONE 6 MG TAB.ER.24 PO SCH ×2 (09:09→20:17)
[2022-01-07] MEDS: ZINC SULFATE 220 MG CAP PO SCH (09:09)
[2022-01-07] MEDS: CHOLECALCIFEROL 25 MCG (1000 IU) TABLET PO SCH (09:09)
[2022-01-07] MEDS: ENOXAPARIN 40 MG/0.4 ML SYRINGE SQ SCH (09:10)
--- NOTE | 2022-01-07 18:41 | P.PN ---
Subjective Progress Note Date: 01/07/22 This is a 21-year-old male who was recently admitted with acute COVID-19 infection also some psychosis. Patient is not hypoxic although infectious disease is following and has started oral antibiotics. Psychiatry following and making adjustments to medications and meets criteria for inpatient psych [facility] due to Covid will not be cleared from precautions until 01/09/2022. Case management is following and have been placing referrals outpatient although no one is accepting at this time. Patient is requiring a safety spec along with security due to his erratic behavior and will continue to monitor closely and use as needed medications. Attempts to avoid restraining if possible. Patient is afebrile denies chest pain or shortness of breath. Patient has been walking the halls in the rooms multiple times with no hypoxia or respiratory symptoms. Patient is tolerating diet with no reports of nausea or vomiting noted. 01/07/2022 Patient is seen in follow up today with sitter and security at the bedside. Recommend to maintain Covid precautions and continue with oral abx and vitamins as prescribed. ID and psychiatry following. Plan is for [facility] in the next few days possibly sunday. Afebrile and no reports of respiratory symptoms. Continue with psychiatric medications as well as prn medications for anxiety and agitation. Review of systems: Constitutional: No reports of fatigue, fever, or chills Cardiovascular: No reports of chest pain or palpitations Respiratory: No reports of shortness of breath or cough GI: No reports of nausea, no reports of of vomiting, or diarrhea : No reports of dysuria or retention Neurovascular: No reports of generalized weakness All medications have been reviewed PHYSICAL EXAMINATION: GENERAL: The patient is alert and oriented , thin built young male, well- nourished HEENT: Pupils are round and equally reacting to light. EOMI. no scleral icterus. No conjunctival pallor. Normocephalic, atraumatic. No pharyngeal erythema. No thyromegaly. CARDIOVASCULAR: S1 and S2 muffled PULMONARY: diminished breath sounds bilaterally with no wheezing or rhonchi noted. ABDOMEN: soft. Nontender on exam. non-distended, normoactive bowel sounds. No palpable organomegaly. MUSCULOSKELETAL: No joint swelling or deformity. EXTREMITIES: No cyanosis, clubbing, or pedal edema. NEUROLOGICAL: Gross neurological examination did not reveal any focal deficits. currently calm SKIN: No rashes. Assessment: Acute COVID-19 infection Acute psychosis History of tetralogy of Fallot history of Aspergers History of THC and draping Full code Plan: Recommend to continue with current medications and management psychiatry following closely. Patient also requiring safety spec and security at the bedside as patient has extremely erratic behavior with attempts at leaving. Patient is petitioned and meets criteria for inpatient psychiatry although patient is COVID-19 and due to protocol patient is not cleared from precautions until 01/09/2022. ID following and will continue Omnicef along with doxycycline, recommend continue with vitamin CMD, zinc, and Lovenox although patient has been refusing Lovenox. Patient has been walking frequently in the halls along with his room multiple times throughout the day. Prognosis is guarded and patient is petitioned unable to leave AMA at this time. Psychiatry following The impression and plan of care has been dictated as a scribe by Chen Naylor, nurse practitioner as directed. Dr. Angel MD I have performed a history and examination and MDM of this patient, discussed the same with the dictator, and has been documented as a scribe. Based on total visit time, I have performed more than 50% of the visit. Any additional findings or plans will be noted. Objective - Vital Signs Vital signs: Vital Signs Temp 97.7 F 01/07/22 02:00 Pulse 102 H 01/07/22 02:00 Resp 16 01/07/22 02:00 BP 121/86 01/07/22 02:00 Pulse Ox 97 01/07/22 02:00 FiO2 Intake & Output 01/06/22 01/06/22 01/07/22 06:59 18:59 06:59 Intake Total 800 Balance 800 Intake: Oral 800 Other: Voiding Method Toilet Toilet # Voids 3 3 - Labs CBC & Chem 7: 01/03/22 06:55 01/03/22 06:48
[2022-01-07] MEDS: traZODone HCL 100 MG TAB PO PRN (20:17)
[2022-01-08] MEDS ORDERED: MELATONIN 5 MG TABLET PO ONE (03:11)
[2022-01-08] MEDS: CEFDINIR 300 MG CAP PO SCH ×2 (10:10→20:10)
[2022-01-08] MEDS: DOXYCYCLINE 100 MG CAP PO SCH ×2 (10:10→20:10)
[2022-01-08] MEDS: ZINC SULFATE 220 MG CAP PO SCH (10:11)
[2022-01-08] MEDS: LITHIUM CARBONATE 300 MG CAP PO SCH ×2 (10:11→20:10)
[2022-01-08] MEDS: PANTOPRAZOLE 40 MG TABLET PO SCH (10:11)
[2022-01-08] MEDS: CHOLECALCIFEROL 25 MCG (1000 IU) TABLET PO SCH (10:11)
[2022-01-08] MEDS: PALIPERIDONE 6 MG TAB.ER.24 PO SCH ×2 (10:11→20:10)
[2022-01-08] MEDS: ENOXAPARIN 40 MG/0.4 ML SYRINGE SQ SCH (10:11)
[2022-01-08] MEDS: ASCORBIC ACID 500 MG TAB PO SCH (10:12)
[2022-01-08] MEDS: traZODone HCL 100 MG TAB PO PRN (20:10)
--- NOTE | 2022-01-08 23:25 | P.PN ---
Subjective Progress Note Date: 01/07/22 Principal diagnosis: Pneumonia Patient is a 21 year male initially presented to the hospital 12/30/2021 for psychotic behavior, patient did have a low-grade fever on 12/17 and also have a positive core test chest x-ray however showing mostly left-sided acute infiltrate and mildly elevated though considering consult for possible committed community-acquired pneumonia. On today's evaluation that is 01/07/2022, the patient continues to be afebrile, the patient is breathing comfortably on room air, the patient denies any chest pain or shortness of breath patient did have mild cough no abdominal pain or diarrhea Objective - Vital Signs Vital signs: Vital Signs Temp 97.7 F 01/07/22 02:00 Pulse 102 H 01/07/22 02:00 Resp 16 01/07/22 02:00 BP 121/86 01/07/22 02:00 Pulse Ox 97 01/07/22 02:00 FiO2 Intake & Output 01/06/22 01/07/22 01/07/22 18:59 06:59 18:59 Intake Total 800 Balance 800 Intake: Oral 800 Other: Voiding Method Toilet # Voids 3 - Exam GENERAL DESCRIPTION: Young male lying in bed in no distress RESPIRATORY SYSTEM: Unlabored breathing , decreased breath sounds at bases HEART: S1 S2 regular rate and rhythm , ABDOMEN: Soft , no tenderness EXTREMITIES: No edema feet - Labs CBC & Chem 7: 01/03/22 06:55 01/03/22 06:48 Assessment and Plan (1) COVID Current Visit: Yes Status: Acute Code(s): U07.1 - COVID-19 SNOMED Code(s): 557311121 (2) Pneumonia Current Visit: Yes Status: Acute Code(s): J18.9 - PNEUMONIA, UNSPECIFIED ORGANISM SNOMED Code(s): 529230040 Plan: 1patient with a positive COVID test however the patient is currently breathing comfortably on room air no hypoxemia no white count the patient the chest x-ray did show small focal opacity which would be compatible with possible community- acquired pneumonia and the patient also have mild elevated procalcitonin. 2there is no need for steroids or remdesivir , patient to continue with the vitamin C zinc and Lovenox. 3the patient has shown clinical improvement, the patient will continue with cefdinir and oral doxycycline for possible community acquired pneumonia to finis h a 5 day course of therapy. Time with Patient: Less than 30
--- NOTE | 2022-01-08 23:26 | P.PN ---
Subjective Progress Note Date: 01/08/22 Principal diagnosis: Pneumonia Patient is a 21 year male initially presented to the hospital 12/30/2021 for psychotic behavior, patient did have a low-grade fever on 12/17 and also have a positive core test chest x-ray however showing mostly left-sided acute infiltrate and mildly elevated though considering consult for possible committed community-acquired pneumonia. On today's evaluation that is 01/08/2022, the patient denies any fever or any chills, the patient is breathing comfortably on room air, the patient denies any chest pain or shortness of breath , the patient denies significant cough or sputum production no abdominal pain or diarrhea Objective - Vital Signs Vital signs: Vital Signs Temp 98.4 F 01/08/22 08:00 Pulse 94 01/08/22 08:00 Resp 18 01/08/22 08:00 BP 112/72 01/08/22 08:00 Pulse Ox 98 01/08/22 08:00 FiO2 Intake & Output 01/07/22 01/08/22 01/08/22 18:59 06:59 18:59 Other: Voiding Method Toilet Toilet # Voids 1 - Exam GENERAL DESCRIPTION: Young male lying in bed in no distress RESPIRATORY SYSTEM: Unlabored breathing , decreased breath sounds at bases HEART: S1 S2 regular rate and rhythm , ABDOMEN: Soft , no tenderness EXTREMITIES: No edema feet - Labs CBC & Chem 7: 01/03/22 06:55 01/03/22 06:48 Assessment and Plan (1) COVID Current Visit: Yes Status: Acute Code(s): U07.1 - COVID-19 SNOMED Code(s): 336146751 (2) Pneumonia Current Visit: Yes Status: Acute Code(s): J18.9 - PNEUMONIA, UNSPECIFIED ORGANISM SNOMED Code(s): 858435979 Plan: 1patient with a positive COVID test however the patient is currently breathing comfortably on room air no hypoxemia no white count the patient the chest x-ray did show small focal opacity which would be compatible with possible community- acquired pneumonia and the patient also have mild elevated procalcitonin. 2there is no need for steroids or remdesivir , patient to continue with the vitamin C zinc and Lovenox. 3the patient has shown clinical improvement, the patient will continue with cefdinir and oral doxycycline and monitor clinical course closely Time with Patient: Less than 30
[2022-01-09] MEDS: ACETAMINOPHEN TAB 325 MG TAB PO PRN ×2 (02:19→10:41)
--- NOTE | 2022-01-09 03:23 | P.PN ---
Subjective Progress Note Date: 01/08/22 This is a 21-year-old male who was recently admitted with acute COVID-19 infection also some psychosis. Patient is not hypoxic although infectious disease is following and has started oral antibiotics. Psychiatry following and making adjustments to medications and meets criteria for inpatient psych [facility] due to Covid will not be cleared from precautions until 01/09/2022. Case management is following and have been placing referrals outpatient although no one is accepting at this time. Patient is requiring a safety council director along with security due to his erratic behavior and will continue to monitor closely and use as needed medications. Attempts to avoid restraining if possible. Patient is afebrile denies chest pain or shortness of breath. Patient has been walking the halls in the rooms multiple times with no hypoxia or respiratory symptoms. Patient is tolerating diet with no reports of nausea or vomiting noted. 01/07/2022 Patient is seen in follow up today with sitter and security at the bedside. Recommend to maintain Covid precautions and continue with oral abx and vitamins as prescribed. ID and psychiatry following. Plan is for [facility] in the next few days possibly sunday. Afebrile and no reports of respiratory symptoms. Continue with psychiatric medications as well as prn medications for anxiety and agitation. 01/08/2022 Patient is seen today and continued on precautions for covid. No symptoms. Continued on vitamins and zinc supplements along with oral abx with ID following. Psych following as well and will follow up in am with possible transfer to [facility] for further psychiatric evaluation. Continue with sitter and security for now. Continue PRN meds. Patient is petitioned and unable to leave AMA. Review of systems: Constitutional: No reports of fatigue, fever, or chills Cardiovascular: No reports of chest pain or palpitations Respiratory: No reports of shortness of breath or cough GI: No reports of nausea, no reports of of vomiting, or diarrhea : No reports of dysuria or retention Neurovascular: No reports of generalized weakness All medications have been reviewed PHYSICAL EXAMINATION: GENERAL: The patient is alert and oriented , thin built young male, well- nourished HEENT: Pupils are round and equally reacting to light. EOMI. no scleral icterus. No conjunctival pallor. Normocephalic, atraumatic. No pharyngeal erythema. No thyromegaly. CARDIOVASCULAR: S1 and S2 muffled PULMONARY: diminished breath sounds bilaterally with no wheezing or rhonchi noted. ABDOMEN: soft. Nontender on exam. non-distended, normoactive bowel sounds. No palpable organomegaly. MUSCULOSKELETAL: No joint swelling or deformity. EXTREMITIES: No cyanosis, clubbing, or pedal edema. NEUROLOGICAL: Gross neurological examination did not reveal any focal deficits. currently calm SKIN: No rashes. Assessment: Acute COVID-19 infection Acute psychosis History of tetralogy of Fallot history of Aspergers History of THC and draping Full code Plan: Recommend to continue with current medications and management psychiatry following closely. Patient also requiring safety council director and security at the bedside as patient has extremely erratic behavior with attempts at leaving. Patient is petitioned and meets criteria for inpatient psychiatry although patient is COVID-19 and due to protocol patient is not cleared from precautions until 01/09/2022. ID following and will continue Omnicef along with doxycycline, recommend continue with vitamin CMD, zinc, and Lovenox although patient has been refusing Lovenox. Patient has been walking frequently in the halls along with his room multiple times throughout the day. Prognosis is guarded and possible transfer to [facility] in am. Psychiatry following The impression and plan of care has been dictated as a scribe by Chen Naylor, nurse practitioner as directed. Dr. Angel MD I have performed a history and examination and MDM of this patient, discussed the same with the dictator, and has been documented as a scribe. Based on total visit time, I have performed more than 50% of the visit. Any additional findings or plans will be noted. Objective - Vital Signs Vital signs: Vital Signs Temp 98.4 F 01/08/22 08:00 Pulse 94 01/08/22 08:00 Resp 18 01/08/22 08:00 BP 112/72 01/08/22 08:00 Pulse Ox 98 01/08/22 08:00 FiO2 Intake & Output 01/07/22 01/08/22 01/08/22 18:59 06:59 18:59 Other: Voiding Method Toilet # Voids 1 - Labs CBC & Chem 7: 01/03/22 06:55 01/03/22 06:48
--- NOTE | 2022-01-09 09:51 | P.DS ---
Providers Date of admission: 01/03/22 14:06 Expected date of discharge: 01/09/22 Attending physician: Sharona Ortiz Consults: 12/30/21 22:09 Consult Physician Routine Consulting Provider: Enoch Hinojosa Consult Reason/Comments: psychosis, covid Do you want consulting provider notified?: Already Contacted 01/03/22 16:24 Consult Physician Routine Consulting Provider: Dc Judge Consult Reason/Comments: COVID PNEUMONIA? Do you want consulting provider notified?: Yes Primary care physician: Stated None Hospital Course: Final diagnosis Acute COVID-19 infection Acute psychosis History of tetralogy of Fallot history of Aspergers History of THC and vaping Full code Discharge disposition Patient is being transferred in a stable condition with guarded prognosis to [address] [place] [address] psychiatric unit for further evaluation . Patient will follow-up with his PCP in the outpatient setting upon discharge. Patient is to do need to follow with CM as well. Patient is to continue with oral doxycycline and Cefdinir for the next 5 days to complete the course. Total time taken is greater than 35 minutes. Hospital course This is a 21-year-old male who was recently admitted with acute psychosis and also found to have Covid and was being closely monitored. Patient is medically stable and has also been seen by infectious disease recommending oral antibiotics to complete the course. Patient is also maintained on vitamin and zinc supplements and will continue. Psychiatry following recommending inpatient psychiatric unit for further evaluation once cleared per protocol of Covid. Patient is medically stable and not having any symptoms of respiratory compromise due to Covid. Patient was petitioned and unable to leave AMA. Patient will be transferred to [facility]. Currently no reports of chest pain, shortness of breath, or palpitations. Patient is afebrile. No reports of nausea or vomiting and patient is tolerating diet. Guarded prognosis. Physical exam: Gen: This is a 21-year-old male awake, alert and oriented 3, thin built, well- nourished. HEENT: Head is atraumatic, normocephalic. Pupils equal, round. Sclerae is anicteric. NECK: Supple. No JVD. No lymphadenopathy. No thyromegaly. LUNGS: Diminished breath sounds bilaterally with no wheezes or rhonchi. No intercostal retractions. HEART: S1, S2 are muffled. Sinus tachycardia ABDOMEN: Soft. Bowel sounds are present. No masses. No tenderness. EXTREMITIES: No pedal edema. No calf tenderness. NEUROLOGICAL: Patient is awake, alert and oriented x3. Cranial nerves 2 through 12 are grossly intact. Please refer to medication reconciliation sheet for a list of medications. The impression and plan of care has been dictated by Chen Naylor, Nurse Practitioner as directed. Dr. Angel MD I have performed a history and examination and MDM of this patient, discussed the same with the dictator, and agree with the dictator's assessment and plan as written ,documented as a scribe. Based on total visit time, I have performed more than 50% of the visit. Patient Condition at Discharge: Fair Plan - Discharge Summary Discharge Rx Participant: Yes New Discharge Prescriptions: New LORazepam [Ativan] 1 mg PO Q6HR PRN tab PRN Reason: Anxiety traZODone HCL [Desyrel] 100 mg PO HS PRN tab PRN Reason: Insomnia haloperidoL [Haldol] 5 mg PO Q6HR PRN tab PRN Reason: Agitation Cefdinir [Omnicef] 300 mg PO BID 5 Days #10 cap Zinc Sulfate [Orazinc] 220 mg PO DAILY 14 Days #14 cap Acetaminophen Tab [Tylenol] 650 mg PO Q6HR PRN tab PRN Reason: Mild Pain Or Fever > 100.5 hydrOXYzine pamoate [Vistaril] 50 mg PO TID PRN cap PRN Reason: Anxiety Ascorbic Acid [Vitamin C] 500 mg PO DAILY tab Paliperidone [Invega] 6 mg PO BID tab [place] Carbonate 300 mg PO BID cap Pantoprazole [Protonix] 40 mg PO AC-BRKFST tab Doxycycline [Vibramycin] 100 mg PO BID 5 Days #10 cap Continue Multivitamins, Thera [Multivitamin (formulary)] 1 tab PO DAILY Cholecalciferol [Vitamin D3 (25 Mcg = 1000 Iu)] 25 mcg PO DAILY Vitamin B Complex 1 cap PO DAILY Discontinued Paliperidone [Invega] 3 mg PO HS 30 Days Discharge Medication List Multivitamins, Thera [Multivitamin (formulary)] 1 tab PO DAILY 08/20/20 [History] Cholecalciferol [Vitamin D3 (25 Mcg = 1000 Iu)] 25 mcg PO DAILY 07/26/21 [History] Vitamin B Complex 1 cap PO DAILY 07/26/21 [History] Acetaminophen Tab [Tylenol] 650 mg PO Q6HR PRN tab 01/09/22 [Rx] Ascorbic Acid [Vitamin C] 500 mg PO DAILY tab 01/09/22 [Rx] Cefdinir [Omnicef] 300 mg PO BID 5 Days #10 cap 01/09/22 [Rx] Doxycycline [Vibramycin] 100 mg PO BID 5 Days #10 cap 01/09/22 [Rx] LORazepam [Ativan] 1 mg PO Q6HR PRN tab 01/09/22 [Rx] [place]ell Carbonate 300 mg PO BID cap 01/09/22 [Rx] Paliperidone [Invega] 6 mg PO BID tab 01/09/22 [Rx] Pantoprazole [Protonix] 40 mg PO AC-BRKFST tab 01/09/22 [Rx] Zinc Sulfate [Orazinc] 220 mg PO DAILY 14 Days #14 cap 01/09/22 [Rx] haloperidoL [Haldol] 5 mg PO Q6HR PRN tab 01/09/22 [Rx] hydrOXYzine pamoate [Vistaril] 50 mg PO TID PRN cap 01/09/22 [Rx] traZODone HCL [Desyrel] 100 mg PO HS PRN tab 01/09/22 [Rx] Follow up Appointment(s)/Referral(s): None,Stated [Primary Care Provider] - 1-2 days Activity/Diet/Wound Care/Special Instructions: Patient is medically stable and clear to be transferred to [facility] for psychiatric evaluation Discharge Disposition: TRANSFER TO PSYCH HOSP/UNIT
[2022-01-09] MEDS: PANTOPRAZOLE 40 MG TABLET PO SCH (10:41)
[2022-01-09] MEDS: CEFDINIR 300 MG CAP PO SCH (10:41)
[2022-01-09] MEDS: ASCORBIC ACID 500 MG TAB PO SCH (10:41)
[2022-01-09] MEDS: LITHIUM CARBONATE 300 MG CAP PO SCH (10:41)
[2022-01-09] MEDS: PALIPERIDONE 6 MG TAB.ER.24 PO SCH (10:42)
[2022-01-09] MEDS: ENOXAPARIN 40 MG/0.4 ML SYRINGE SQ SCH (10:42)
[2022-01-09] MEDS: ZINC SULFATE 220 MG CAP PO SCH (10:42)
[2022-01-09] MEDS: CHOLECALCIFEROL 25 MCG (1000 IU) TABLET PO SCH (10:44)
[2022-01-09] MEDS: DOXYCYCLINE 100 MG CAP PO SCH (13:17)
[2022-01-09 14:37] VITALS: BP 123/65; PULSE 90; RESP 16; TEMP 98
== END 2022-01-09 14:51 | DRG 177 ==
LOC: EC 16:56 → 6NMEDSUR 22:10 → 4SSUR 12-31 09:31 → OBSVTOIN 01-03 14:06 → 4SSUR 01-04 04:00
PROVIDERS: ADMIT Hospitalist; ATTEND Hospitalist
PROC: 8E0ZXY6 Isolation (ICD-10-PCS; principal; 2021-12-30)
DX: U07.1 COVID-19 (principal); J12.82 Pneumonia due to coronavirus disease 2019; F20.81 Schizophreniform disorder; F84.5 Asperger's syndrome; J98.11 Atelectasis; F60.0 Paranoid personality disorder; F12.20 Cannabis dependence, uncomplicated; Z28.310 Unvaccinated for COVID-19; D72.810 Lymphocytopenia; F41.9 Anxiety disorder, unspecified; F17.290 Nicotine dependence, other tobacco product, uncomplicated; Z71.6 Tobacco abuse counseling; Z78.9 Other specified health status; Z79.899 Other long term (current) drug therapy; Z87.74 Personal history of (corrected) congenital malformations of heart and circulatory system; Z88.0 Allergy status to penicillin
CPT/HCPCS: 71045; 80048; 80053; 82075; 83615; 84145; 85025; 85379; 86140; 87635; 99285

== ENCOUNTER 2022-01-09 14:02 | Inpatient (IN) | payer MEDICAID ==
[2022-01-09] MEDS ORDERED: MAG HYDROX/AL HYDROX/SIMETH 30 ML CUP PO PRN (14:22)
[2022-01-09] MEDS ORDERED: MAGNESIUM HYDROXIDE 2,400 MG/10 ML CUP PO PRN (14:22)
[2022-01-09] MEDS ORDERED: haloperidoL 5 MG TAB PO PRN (14:26)
[2022-01-09] MEDS ORDERED: HALOPERIDOL LACTATE 5 MG/ML 1 ML VIAL IM PRN (14:26)
[2022-01-09] MEDS ORDERED: LORazepam 1 MG/0.5 ML VIAL IM PRN (14:26)
[2022-01-09] MEDS ORDERED: diphenhydrAMINE 50 MG/ML 1 ML VIAL IM PRN (14:26)
[2022-01-09] MEDS ORDERED: LORazepam 1 MG TAB PO PRN (14:26)
[2022-01-09] MEDS: ACETAMINOPHEN TAB 325 MG TAB PO PRN (18:00)
[2022-01-09] MEDS: LITHIUM CARBONATE 300 MG CAP PO SCH (21:10)
[2022-01-09] MEDS: DOXYCYCLINE 100 MG CAP PO SCH (21:10)
[2022-01-09] MEDS: PALIPERIDONE 6 MG TAB.ER.24 PO SCH (21:10)
[2022-01-09] MEDS: CEFDINIR 300 MG CAP PO SCH (21:11)
[2022-01-10 06:40] VITALS: RESP 18; TEMP 97.9
[2022-01-10] MEDS: DOXYCYCLINE 100 MG CAP PO SCH ×2 (08:12→22:05)
[2022-01-10] MEDS: PANTOPRAZOLE 40 MG TABLET PO SCH (08:12)
[2022-01-10] MEDS: PALIPERIDONE 6 MG TAB.ER.24 PO SCH ×2 (08:12→22:05)
[2022-01-10] MEDS: ASCORBIC ACID 500 MG TAB PO SCH (08:12)
[2022-01-10] MEDS: MULTIVITAMINS, THERA 1 EACH TAB PO SCH (08:12)
[2022-01-10] MEDS: CHOLECALCIFEROL 25 MCG (1000 IU) TABLET PO SCH (08:12)
[2022-01-10] MEDS: LITHIUM CARBONATE 300 MG CAP PO SCH ×2 (08:12→22:05)
[2022-01-10] MEDS: CEFDINIR 300 MG CAP PO SCH ×2 (08:13→22:05)
[2022-01-10] MEDS: ZINC SULFATE 220 MG CAP PO SCH (08:15)
[2022-01-10] MEDS: NICOTINE 14MG/24HR PATCH TRANSDERM SCH (08:15)
[2022-01-10] MEDS ORDERED: NON FORMULARY DRUG (Vitamin B Complex [Vitamin B Complex] 1 EACH Capsule) PO SCH (09:00)
[2022-01-10] MEDS: ACETAMINOPHEN TAB 325 MG TAB PO PRN ×2 (09:28→15:54)
[2022-01-10] MEDS ORDERED: PALIPERIDONE IM 234 MG/1.5 ML SYG IM STA (10:24)
--- NOTE | 2022-01-10 10:32 | P.HP ---
Psychiatric H&P - . H&P Date: 01/10/22 History & Physical: Allergies Allergy/AdvReac Type Severity Reaction Status Date / Time amoxicillin Allergy Rash/Hives Verified 12/30/21 17:53 Vital Signs Temp 97.9 F 01/10/22 06:38 Pulse 104 H 01/10/22 06:38 Resp 18 01/10/22 06:38 BP 113/69 01/10/22 06:38 Pulse Ox 98 01/10/22 06:38 FiO2 Intake & Output 01/09/22 01/10/22 01/10/22 18:59 06:59 18:59 Weight 56.69 kg 01/10/22 10:25 IDENTIFYING DATA: This patient is a 21-year-old male who is currently employed HISTORY OF PRESENT ILLNESS: The patient presented initially to the ED on a pickup order but given that COVID-19 was positive, patient could not be placed in the psychiatric unit and was seen by psych CL team for treatment while in quarantine and trying to be placed. When the patient was first admitted, patient was delusional, experiencing hallucinations agitated and fairly irritable. Patient was also bizarre and illogical in his thought process. Patient was seen by Dr Kennedy and also followed by chart writer for psychiatric care. Patient was transitioned onto paliperidone by mouth, 6 mg twice a day for psychosis and patient was on and off compliant with medication however shortly before coming to the psychiatric unit patient started taking the medications more consistently. Patient was agitated several times on the medical floors and required a one-to-one sitter and also several IM prns for aggression. Patient w as transferred yesterday to the psychiatric unit involuntarily and signed an AFP upon arrival. 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 Patient appears to have improvement in his impulse control today, he was fairly future oriented and more logical in his responses. He spoke about missing his family and being away from them for over 10 days now. He states that his mood is "okay" and is denying any depression or anxiety at this time. We spoke about his medication and he continues to have a superficial/limited understanding of them. We spoke about transitioning him onto long-acting injection which she is agreeable to. He claims that he is going to groups. States that he slept a bit better last night. He is not reporting any side effects from medications. At this time patient denies any suicidal or homical ideations, intent or plan. Patient denies any auditory, visual hallucinations. Patient is not endorsing any paranoia and persecutory delusions. PAST PSYCHIATRIC HISTORY: Patient has a a history of psychosis. He reports being on Invega and that it caused him to feel tired. He was hospitalized at [facility] in July 2021 for psychosis. He denies having an outpatient psychiatrist. Patient denies any history of suicide attempts PAST MEDICAL HISTORY: TOF and autistic spectrum disorder ALLERGIES: as per EMR. CHEMICAL DEPENDENCY HISTORY: Patient endorses vaping cannabis and tobacco. He denies other substance use FAMILY PSYCHIATRIC/SUBSTANCE USE HISTORY: Grandfatherbipolar disorder SOCIAL HISTORY: Patient was born and raised in [place]. He states that he completed high school but is not in college due to failed grades. 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 He also reports he has 4 dogs whom he loves a lot MENTAL STATUS EXAM: General Appearance: Patient appears to be thin, short in stature, stated age is alert, directable, and attempts to cooperate. Patient appears to have fair hygiene and grooming. Behavior: Patient is seated without any agitated behavior. Attempts to cooperate today. Speech: Patient's speech is fluent and nonpressured. Mood/Affect: Patient reports their mood is "okay", affect is congruent and constricted. Suicidality/Homicidality: Patient denies having any homicidal ideation intent or plan. Denies any suicidal ideations intent or plan Perceptions: Patient denies any visual hallucinations and denies any auditory hallucinations Though content/process: There is no evidence of any delusional thought content and thought process is linear and goal-directed. More logical today. Memory and concentration: AOX3, grossly intact for the purposes of this session. Can spell "WORLD" backwards Judgment and insight: Chronically limited STRENGTHS/WEAKNESSES: strength is that patient is resilient. Weakness is that patient has poor judgment and is impulsive INTELLECT: below average IMPRESSIONS: Schizophrenia Cannabis use disorder severe Nicotine dependence PLAN: -Patient is admitted under voluntary status to [facility] for stabilization of psychiatric symptoms and safety. Patient has signed adult voluntary form and is placed in patient's chart. -Medications : Will start patient on paliperidone by mouth 6 mg twice a day. Patient is agreeable to take loading dose of Invega Sustenna today 234 mg IM. Robert Lee 300 mg twice a day for mood stabilization. -Ativan and Haldol PRN for agitation/aggression -Patient was counselled on substance abuse and desired to cut back on use -Patient was informed of the risks, benefits and side effects of the medication -Internal Medicine consult to perform medical evaluation and physical. -NRT - nicotine patch -SW on board for discharge planning. Encourage patient to participate in groups to work on coping skills. Likely discharge in 1-2 days back home once patient is safely transition onto long-acting injection. 01/10/22 10:31
--- NOTE | 2022-01-10 13:03 | P.MDCNMH ---
History of Present Illness H&P Date: 01/10/22 This is 21-year-old male who was recently admitted under medical services for acute COVID-19 infection and followed by infectious disease maintained on vitamin C supplements along with doxycycline and cefdinir and recommend continue for another 4 days to complete a course. Patient was petitioned for acute psychosis and medically stable and has been transferred over to [facility] for continued psychiatric evaluation. 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 Patient does have asbrrgers as well with history of anxiety. Patient admits to smoking and vaping with marijuana use. Patient denies alcohol use. Patient reports he is being compliant with medications and also has been going to group and therapy with psychiatry. Patient denies any shortness of breath or difficulty in breathing. Patient is tolerating diet with no reports of nausea or vomiting noted. Review Of Systems: Constitutional: No fever, no chills, no night sweats. No weight change. No weakness, fatigue or lethargy. No daytime sleepiness. EENT: No headache. No blurred vision or double vision, no loss of vision. No loss of Hearing, no ringing in the ears, no dizziness. No nasal drainage or congestion. No epistaxis. No sore throat. Lungs: No shortness of breath, cough, no sputum production. No wheezing. Cardiovascular: No chest pain, no lower extremity edema. No palpitations. No paroxysmal nocturnal dyspnea. No orthopnea. No lightheadedness or dizziness. No syncopal episodes. Abdominal: No abdominal pain. No nausea, vomiting. No diarrhea. No constipation. No bloody or tarry stools.. No loss of appetite. Genitourinary: No dysuria, increased frequency, urgency. No urinary retention. Musculoskeletal: No myalgias. No muscle weakness, no gait dysfunction, no frequent falls. No back pain. No neck pain. Integumentary: No wounds, no lesions. No rash or pruritus. No unusual bruising. No change in hair or nails. Neurologic: No aphasia. No facial droop. No change in mentation. No head injury. No headache. No paralysis. No paresthesia. Psychiatric: No depression. No anxiety. No mood swings. Endocrine: No abnormal blood sugars. No weight change. No excessive sweating or thirst. No cold intolerance. PHYSICAL EXAMINATION: GENERAL: The patient is alert and oriented x4, thin built young male HEENT: Pupils are round and equally reacting to light. EOMI. no scleral icterus. No conjunctival pallor. Normocephalic, atraumatic. No pharyngeal erythema. No thyromegaly. CARDIOVASCULAR: S1 and S2 muffled PULMONARY: diminished breath sounds bilaterally with no wheezing or rhonchi noted. ABDOMEN: soft. Nontender on exam. obese. non-distended, normoactive bowel sounds. No palpable organomegaly. MUSCULOSKELETAL: No joint swelling or deformity. EXTREMITIES: No cyanosis, clubbing, or pedal edema. NEUROLOGICAL: Gross neurological examination did not reveal any focal deficits. SKIN: No rashes. Assessment: COVID-19 infection, with no respiratory symptoms Acute psychosis History of tetralogy of fallot History of Asbergers Continued ongoing nicotine dependence and vaping THC use Full code Plan: Recommend to continue with current medications and management while on [address]. psychiatric unit for further evaluation. Patient is compliant with medication and currently on antibiotics per ID recommendations to complete the course for COVID-19 infection. Patient is asymptomatic and also maintained on vitamin and zinc supplements. Patient has been attending group therapy and is compliant with psychiatric recommendations. Patient to follow-up with [facility] outpatient, his primary care provider along with his student education specialist that he follows with. Encouraged oral intake and continuing to be compliant with psychiatric medications and group therapy meetings. The impression and plan of care has been dictated by Chen Naylor, nurse practitioner as directed. Dr. Yovanny BLOOM I have performed a history and examination and MDM of this patient, discussed the same with the dictator, and agree with the dictator's assessment and plan as written ,documented as a scribe. Based on total visit time, I have performed more than 50% of the visit. Any additional findings or plans will be noted. Past Medical History Past Medical History: Neurologic Disorder Additional Past Medical History / Comment(s): Tetrology of Fallot. Asbergers. History of Any Multi-Drug Resistant Organisms: None Reported Additional Past Surgical History / Comment(s): Heart surgery X1. [address] teeth extracted. Past Anesthesia/Blood Transfusion Reactions: No Reported Reaction, Motion Sickness Past Psychological History: Anxiety Smoking Status: Current every day smoker, Vaper Past Alcohol Use History: None Reported Past Drug Use History: Marijuana Additional Drug Use History / Comment(s): Medical marijuana once or twice daily. - Past Family History Mother Family Medical History: No Reported History Medications and Allergies Home Medications Medication Instructions Recorded Confirmed Type Multivitamins, Thera [Multivitamin 1 tab PO DAILY 08/20/20 01/09/22 History (formulary)] Cholecalciferol [Vitamin D3 (25 25 mcg PO DAILY 07/26/21 01/09/22 History Mcg = 1000 Iu)] Vitamin B Complex 1 cap PO DAILY 07/26/21 01/09/22 History Acetaminophen Tab [Tylenol] 650 mg PO Q6HR PRN tab 01/09/22 01/09/22 Rx Ascorbic Acid [Vitamin C] 500 mg PO DAILY tab 01/09/22 01/09/22 Rx Cefdinir [Omnicef] 300 mg PO BID 5 Days #10 cap 01/09/22 01/09/22 Rx Doxycycline [Vibramycin] 100 mg PO BID 5 Days #10 cap 01/09/22 01/09/22 Rx LORazepam [Ativan] 1 mg PO Q6HR PRN tab 01/09/22 01/09/22 Rx [place] Carbonate 300 mg PO BID cap 01/09/22 01/09/22 Rx Paliperidone [Invega] 6 mg PO BID tab 01/09/22 01/09/22 Rx Pantoprazole [Protonix] 40 mg PO AC-BRKFST tab 01/09/22 01/09/22 Rx Zinc Sulfate [Orazinc] 220 mg PO DAILY 14 Days #14 cap 01/09/22 01/09/22 Rx haloperidoL [Haldol] 5 mg PO Q6HR PRN tab 01/09/22 01/09/22 Rx hydrOXYzine pamoate [Vistaril] 50 mg PO TID PRN cap 01/09/22 01/09/22 Rx traZODone HCL [Desyrel] 100 mg PO HS PRN tab 01/09/22 01/09/22 Rx Allergies Allergy/AdvReac Type Severity Reaction Status Date / Time amoxicillin Allergy Rash/Hives Verified 12/30/21 17:53 Physical Exam Vitals: Vital Signs Temp Pulse Resp BP Pulse Ox 01/10/22 06:38 97.9 F 104 H 18 113/69 98 01/09/22 16:10 97.8 F 105 H 20 127/69 Intake and Output 01/09/22 01/10/22 01/10/22 22:59 06:59 14:59 Other: Weight 56.69 kg Cranial Nerve Examination - Cranial Nerves Cranial Nerve I- Olfactory: Intact Cranial Nerve II- Optic: Intact Cranial Nerve III- Oculomotor: Intact Cranial Nerve IV- Trochlear: Intact Cranial Nerve V- Trigeminal: Intact Cranial Nerve - Abducens: Intact Cranial Nerve VII- Facial: Intact Cranial Nerve VIII- Auditory: Intact Cranial Nerve IX- Glossopharyngeal: Intact Cranial Nerve X- Vagus: Intact Cranial Nerve XI- Accessory: Intact Cranial Nerve XII- Hypoglossal: Intact Assessment and Plan Time with Patient: Less than 30
[2022-01-10] MEDS: traZODone HCL 100 MG TAB PO PRN (21:32)
[2022-01-11] MEDS: diphenhydrAMINE 50 MG CAP PO PRN ×2 (03:59→21:56)
[2022-01-11] MEDS: ACETAMINOPHEN TAB 325 MG TAB PO PRN ×2 (07:48→11:44)
[2022-01-11] MEDS: NICOTINE 14MG/24HR PATCH TRANSDERM SCH (08:42)
[2022-01-11] MEDS: PALIPERIDONE 6 MG TAB.ER.24 PO SCH (08:42)
[2022-01-11] MEDS: ASCORBIC ACID 500 MG TAB PO SCH (08:42)
[2022-01-11] MEDS: PANTOPRAZOLE 40 MG TABLET PO SCH (08:43)
[2022-01-11] MEDS: CHOLECALCIFEROL 25 MCG (1000 IU) TABLET PO SCH (08:43)
[2022-01-11] MEDS: MULTIVITAMINS, THERA 1 EACH TAB PO SCH (08:43)
[2022-01-11] MEDS: LITHIUM CARBONATE 300 MG CAP PO SCH ×2 (08:43→20:12)
[2022-01-11] MEDS: DOXYCYCLINE 100 MG CAP PO SCH ×2 (08:44→20:12)
[2022-01-11] MEDS: CEFDINIR 300 MG CAP PO SCH ×2 (08:44→20:12)
[2022-01-11] MEDS: ZINC SULFATE 220 MG CAP PO SCH (08:44)
--- NOTE | 2022-01-11 09:52 | P.PN ---
Progress Note - Text Progress Note Date: 01/11/22 Interval History: Patient was seen wandering the hallways and was directable and agreeable to sp eak with chart writer in the office. Patient was fairly persistent to speak with chart writer today. He claims that he is doing better overall today. He claims that he has been taking his medications. He continues to have fairly limited understanding of the medications. He claims that he has been going to groups and socializing on the unit. He claims that he wants to go home and was fairly focused on discharge today. Denying any depression or anxiety. He did become fairly upset when chart writer spoke to him about the discharge planning and also to decreasing his medications. He states that he slept very little last night and has a fair appetite. At this time patient denies any suicidal or homical ideations, intent or plan. Patient denies any auditory, visual hallucinations and denies any paranoia or delusions. Patient denies any side effects from the medications and has been compliant with meds. Mental Status Exam: General Appearance: Patient appears to be thin, short in stature, stated age is alert, directable, and attempts to cooperate. Patient appears to have fair hygiene and grooming. Behavior: Patient is seated without any agitated behavior. Attempts to cooperate today. Speech: Patient's speech is fluent and nonpressured. Mood/Affect: Patient reports their mood is "ok", affect is congruent Suicidality/Homicidality: Patient denies having any homicidal ideation intent or plan. Denies any suicidal ideations intent or plan Perceptions: Patient denies any visual hallucinations and denies any auditory hallucinations Though content/process: There is no evidence of any delusional thought content and thought process is linear and goal-directed. October on discharge Memory and concentration: AOX3, grossly intact for the purposes of this session. Judgment and insight: Chronically limited, improving mildly IMPRESSIONS: Schizophrenia Cannabis use disorder severe Nicotine dependence Plan: -Patient continues to meet criteria for inpatient psychiatric admission for symptom stabilization and safety. Patient has signed adult voluntary form and medication consent and was placed in patient's chart. -Medications: Decreased paliperidone by mouth to 3 mg twice a day. Patient r eceived loading dose of Invega Sustenna today 234 mg IM on 01/10 and will be due for the next dose of 156 mg IM on 01/17. [place] 300 mg twice a day for mood stabilization, will check level tomorrow morning. -When necessary Ativan and Haldol for agitation/aggression. -NRT - nicotine patch -SW on board for discharge planning. Encouraged the patient to participate in milieu. likely discharge tomorrow if patient continues to improve.
[2022-01-11] MEDS: PALIPERIDONE 3 MG TAB.ER.24 PO SCH (20:12)
[2022-01-11] MEDS: traZODone HCL 100 MG TAB PO PRN (20:13)
[2022-01-12] MEDS: ACETAMINOPHEN TAB 325 MG TAB PO PRN (06:20)
[2022-01-12 06:37] VITALS: BP 133/72; PULSE 114
[2022-01-12] MEDS: PALIPERIDONE 3 MG TAB.ER.24 PO SCH (09:26)
[2022-01-12] MEDS: CHOLECALCIFEROL 25 MCG (1000 IU) TABLET PO SCH (09:26)
[2022-01-12] MEDS: LITHIUM CARBONATE 300 MG CAP PO SCH (09:26)
[2022-01-12] MEDS: CEFDINIR 300 MG CAP PO SCH (09:26)
[2022-01-12] MEDS: MULTIVITAMINS, THERA 1 EACH TAB PO SCH (09:26)
[2022-01-12] MEDS: ASCORBIC ACID 500 MG TAB PO SCH (09:26)
[2022-01-12] MEDS: DOXYCYCLINE 100 MG CAP PO SCH (09:26)
[2022-01-12] MEDS: PANTOPRAZOLE 40 MG TABLET PO SCH (09:26)
[2022-01-12] MEDS: ZINC SULFATE 220 MG CAP PO SCH (09:26)
--- NOTE | 2022-01-12 10:37 | P.DS ---
Providers Date of admission: 01/09/22 16:09 Expected date of discharge: 01/12/22 Attending physician: Enoch Hinojosa MD Consults: 01/09/22 14:22 Consult Physician Routine Consulting Provider: Sharona Ortiz Consult Reason/Comments: Medical H&P Do you want consulting provider notified?: Yes Primary care physician: Stated None - Discharge Diagnosis(es) (1) Schizophrenia Current Visit: Yes Status: Acute Priority: High (2) Cannabis use disorder, severe, dependence Current Visit: Yes Status: Acute Priority: High (3) Nicotine dependence Current Visit: Yes Status: Acute Priority: Low Hospital Course: Admission HPI: Admission note was completed by selling underwriter "This patient is a 21-year-old male who is currently employed. The patient presented initially to the ED on a pickup order but given that COVID-19 was positive, patient could not be placed in the psychiatric unit and was seen by psych CL team for treatment while in quarantine and trying to be placed. When the patient was first admitted, patient was delusional, experiencing hallucinations agitated and fairly irr itable. Patient was also bizarre and illogical in his thought process. Patient was seen by Dr Kennedy and also followed by selling underwriter for psychiatric care. Patient was transitioned onto paliperidone by mouth, 6 mg twice a day for psychosis and patient was on and off compliant with medication however shortly before coming to the psychiatric unit patient started taking the medications more consistently. Patient was agitated several times on the medical floors and required a one-to-one sitter and also several IM prns for aggression. Patient was transferred yesterday to the psychiatric unit involuntarily and signed an AFP upon arrival. Patient was seen wandering the unit today and agreeable speech and hearing clinic director. Patient appears to have improvement in his impulse control today, he was fairly future oriented and more logical in his responses. He spoke about missing his family and being away from them for over 10 days now. He states that his mood is "okay" and is denying any depression or anxiety at this time. We spoke about his medication and he continues to have a superficial/limited understanding of them. We spoke about transitioning him onto long-acting injection which she is agreeable to. He claims that he is going to groups. States that he slept a bit better last night. He is not reporting any side effects from medications. At this time patient denies any suicidal or homical ideations, intent or plan. Patient denies any auditory, visual hallucinations. Patient is not endorsing any paranoia and persecutory delusions. " Hospital course: Upon admission to the unit patient was directable and agreeable to commence treatment and signed adult voluntary form. Patient got along well with other patients on the unit and followed unit protocol. Patient was compliant with the medications and denied any side effects throughout hospital course. Patient was started on paliperidone by mouth 6 mg twice a day for psychosis, patient received Invega Sustenna 234 mg IM on 01/10 and will be due for his next dose of 156 mg IM on 01/17. Patient will be due for his maintenance dose of 234 mg IM on 02/07. Patient was started on lithium 300 mg twice a day for mood stabilization, will check dose prior to patient's discharge today. trazodone 100 mg daily at bedtime when necessary for insomnia. Patient spoke of his stressors and engaged in therapy both group and individual. Patient was also seen by medical team for history and physical exam. Throughout the course of the hospitalization patient gradually improved with regards to mood, psychosis, aggression, sleep and returned back to their baseline level of functioning. On the day of discharge patient denied any suicidal or homicidal ideations intent or plan denied any auditory or visual hallucinations. Patient endorsed wanting to live for his health and family. Patient denied any paranoia and did not endorse any delusions. Patient does have a significant history of substance abuse and was counseled on abstaining from all substances including alcohol and marijuana. Patient was offered however declined inpatient substance-abuse rehab. Patient was also counseled on the medications and need for regular compliance and was encouraged to follow-up with their outpatient appointment for mental health and also for primary care. Prior to discharge a family meeting will be arranged by social secretary to answer any questions and ensure safety upon discharge. Mental status exam: General Appearance: Patient appears to be thin, short in stature, stated age is alert, pleasant, and cooperative. Patient is in no acute distress and has improved hygiene and grooming Behavior: Patient is calmly seated without any agitated behavior. Speech: Patient's speech is fluent and nonpressured. Mood/Affect: Patient reports their mood is "good", affect is congruent Suicidality/Homicidality: Patient denies having any suicidal or homicidal ideation intent or plan. Perceptions: Patient denies any auditory or visual hallucinations. Though content/process: There is no evidence of any delusional thought content and thought process is linear and goal-directed. Memory and concentration: AOX3, grossly intact for the purposes of this session. Can spell "WORLD" backwards correctly. Judgment and insight: chronically poor, however has improved with guarded prognosis Impression: Schizophrenia Cannabis use disorder severe Nicotine dependence Plan: -Continue with discharge today as patient has improved and stabilized psychiatrically and is not currently an imminent threat to himself and/or others. Patient will remain at chronically elevated risk for harm to self and/or others due to his impulsivity and substance abuse. -Continue medications: Continue paliperidone by mouth 3 mg twice a day for 2 more days then discontinue. Patient received loading dose of Invega Sustenna 234 mg IM on 01/10, will be due for next dose 156 mg IM on 01/17, monthly maintenance dose will be next to on 02/07 234 mg IM. [place] 300 mg twice a day for mood stabilization. Trazodone 100 mg daily at bedtime when necessary for insomnia. -Patient was counseled on the need for medication compliance and appropriate follow-up at mental health and also primary care for medical issues. Patient verbalized understanding and agreed. -Social work to arrange for and conduct family meeting to ensure safety upon discharge and answer any questions/concerns. Social work also to arrange for patients follow up appointments with [facility] for psychiatric care along with follow up with primary care provider. -Patient counseled on abstaining from recreational drugs and marijuana and alcohol. Was informed/educated on the adverse effects on their physical and mental health. Patient verbally agreed and understood. Patient was offered substance abuse treatment however declined at this time. -Patient was instructed to return to the hospital or seek immediate medical care if their psychiatric or medical symptoms do worsen or reoccur. Allergies Allergy/AdvReac Type Severity Reaction Status Date / Time amoxicillin Allergy Rash/Hives Verified 12/30/21 17:53 Laboratory Results [place] 0.3 mmol/L 01/12/22 09:11 Vital Signs Temp 97.9 F 01/12/22 06:36 Pulse 114 H 01/12/22 06:36 Resp 18 01/12/22 06:36 BP 133/72 01/12/22 06:36 Pulse Ox 99 01/12/22 06:36 FiO2 Patient Condition at Discharge: Stable Plan - Discharge Summary Discharge Rx Participant: Yes New Discharge Prescriptions: New diphenhydrAMINE [Benadryl] 50 mg PO HS PRN 30 Days cap PRN Reason: Insomnia Paliperidone [Invega] 3 mg PO BID 2 Days tab Continue Multivitamins, Thera [Multivitamin (formulary)] 1 tab PO DAILY Ascorbic Acid [Vitamin C] 500 mg PO DAILY tab Cholecalciferol [Vitamin D3 (25 Mcg = 1000 Iu)] 25 mcg PO DAILY Vitamin B Complex 1 cap PO DAILY traZODone HCL [Desyrel] 100 mg PO HS PRN 30 Days tab PRN Reason: Insomnia [place] Carbonate 300 mg PO BID 30 Days cap Pantoprazole [Protonix] 40 mg PO AC-BRKFST 30 Days tab Discontinued LORazepam [Ativan] 1 mg PO Q6HR PRN tab PRN Reason: Anxiety haloperidoL [Haldol] 5 mg PO Q6HR PRN tab PRN Reason: Agitation Cefdinir [Omnicef] 300 mg PO BID 5 Days #10 cap Zinc Sulfate [Orazinc] 220 mg PO DAILY 14 Days #14 cap Acetaminophen Tab [Tylenol] 650 mg PO Q6HR PRN tab PRN Reason: Mild Pain Or Fever > 100.5 hydrOXYzine pamoate [Vistaril] 50 mg PO TID PRN cap PRN Reason: Anxiety Paliperidone [Invega] 6 mg PO BID tab Doxycycline [Vibramycin] 100 mg PO BID 5 Days #10 cap Discharge Medication List Multivitamins, Thera [Multivitamin (formulary)] 1 tab PO DAILY 08/20/20 [History] Cholecalciferol [Vitamin D3 (25 Mcg = 1000 Iu)] 25 mcg PO DAILY 07/26/21 [History] Vitamin B Complex 1 cap PO DAILY 07/26/21 [History] Ascorbic Acid [Vitamin C] 500 mg PO DAILY tab 01/09/22 [Rx] [place] Carbonate 300 mg PO BID 30 Days cap 01/12/22 [Rx] Paliperidone [Invega] 3 mg PO BID 2 Days tab 01/12/22 [Rx] Pantoprazole [Protonix] 40 mg PO AC-BRKFST 30 Days tab 01/12/22 [Rx] diphenhydrAMINE [Benadryl] 50 mg PO HS PRN 30 Days cap 01/12/22 [Rx] traZODone HCL [Desyrel] 100 mg PO HS PRN 30 Days tab 01/12/22 [Rx] Follow up Appointment(s)/Referral(s): Dr Maria Dolores [Other] - 01/26/22 6:00 pm (Dr Whitten) [facility] [Outside] - 01/18/22 1:00 pm (with Griselda ) Activity/Diet/Wound Care/Special Instructions: Avoid the use of street drugs and alcohol. Take all prescriptions as prescribed. When you are in need of refills on your medications, please contact your medical provider and/or outpatient psychiatrist to have this done. Please go to scheduled outpatient appointment for aftercare treatment. If symptoms return or become worse, call the crisis line at and/or go to the nearest emergency room for evaluation. Discharge Disposition: HOME SELF-CARE
== END 2022-01-12 12:37 | disposition home or self-care (01) | DRG 885 ==
LOC: 3MHU 16:09
PROVIDERS: ADMIT Psychiatry & Neurology Psychiatry; ATTEND Psychiatry & Neurology Psychiatry
DX: F20.9 Schizophrenia, unspecified (principal); Q21.3 Tetralogy of Fallot; U07.1 COVID-19; F12.20 Cannabis dependence, uncomplicated; F17.290 Nicotine dependence, other tobacco product, uncomplicated; F84.0 Autistic disorder; G47.00 Insomnia, unspecified; Z79.899 Other long term (current) drug therapy; R45.1 Restlessness and agitation; Z28.310 Unvaccinated for COVID-19; Z28.21 Immunization not carried out because of patient refusal; Z71.51 Drug abuse counseling and surveillance of drug abuser
CPT/HCPCS: 80178